=== PATIENT | female | born 1985 | race Caucasian/White ===

== ENCOUNTER 2024-08-07 12:00 | Outpatient (REF) | payer MEDICAID, SELFPAY ==
[2024-08-07 13:43] LABS: MANUAL DIFF FLAG NO
[2024-08-07 13:44] LABS: Basophils Absolute Auto 0.1 X10*3/uL (0.0-0.2); Eosinophils Percent Auto 0.2 % (0-4); Hematocrit 34.5 % (37.0-47.0); Hemoglobin 11.2 g/dl (12.0-16.0); Imm Gran Abs Auto 0.03 X10*3/uL (0.00-0.03); Imm Gran Pct Auto 0.3 % (0.0-0.4); Lymphocytes Absolute Auto 2.1 X10*3/uL (1.2-4.9); Lymphocytes Percent Auto 23.4 % (20-40); Mean Corpuscular HGB Conc 32.5 g/dl (31.0-35.0); Mean Corpuscular Hemoglobin 27.4 pg (27.0-33.0); Mean Corpuscular Volume 84.4 fL (80.0-98.0); Mean Platelet Volume 12.8 fL (9.4-12.3); Monocytes Absolute Auto 0.5 X10*3/uL (0.1-1.2); Monocytes Percent Auto 5.6 % (2-11); Neutrophils Absolute Auto 6.3 x10*3/uL (2.0-8.3); Neutrophils Percent Auto 69.5 % (45-73); Platelet Count 327 X10*3/uL (160-400); Red Blood Count 4.09 X10*6/uL (4.20-5.50); Red Cell Distribution Width 15.1 % (11.0-16.0); White Blood Count 9.1 X10*3/uL (4.8-10.8)
--- OUTSIDE RECORDS SUMMARY | 2024-08-07 13:53 | XMS_ITS | Encounter Summary ---
Author Organization [employer] Address [address] [place] [address] 7 [place] [address] Care Team Providers Care Global Ceo Name Role Phone Jessika Ramsey MD Primary Care Provider [phone] Reason for Referral * Consultation (Routine) - Authorized Specialty Diagnoses / Procedures Referred By Contac t Referred To Contact Pharmacy Diagnoses Primary hypertension Jessika Ramsey MD [address] [place] [address] Phone: tel: fax: Referral ID Status Reason Start Date Expiration Date Visits Requested Visits Authorized [id number] Authorized Consult and Treat 07/14/2024 07/14/2025 6 6 * Imaging (Routine) - Closed Specialty Diagnoses / Procedures Referred By Contac t Referred To Contact Radiology Diagnoses Screening mammogram for breast cancer Procedures BI Mammogram Screening Tomosynthesis Bilateral Jessika Ramsey MD [address] [place] [address] Phone: tel: fax: [address] Phone: tel: fax: Referral ID Status Reason Start Date Expiration Date Visits Re quested Visits Authorized [id number] Closed 07/14/2024 07/14/2025 1 1 * Consultation (Routine) - Closed Specialty Diagnoses / Procedures Referred By Contac t Referred To Contact Behavioral Health Diagnoses Depressive disorder Jessika Ramsey MD [address] [place] [address] Phone: tel: fax: Referral ID Status Reason Start Date Expiration Date V isits Requested Visits Authorized [id number] Closed Specialty Services Required 07/14/2024 07/14/2025 1 1 * Consultation (Routine) - Closed Specialty Diagnoses / Procedures Referred By Linda rabago Referred To Contact Obstetrics and Gynecology Diagnoses Abnormal cervical Papanicolaou smear, unspecified abnormal pap finding Abnormal uterine bleeding Tubal ligation evaluation eJssika Ramsey MD [address] [place] [address] Phone: tel: fax: [address] Phone: tel: fax: Referral ID Status Reason Start Date Expiration Date V isits Requested Visits Authorized [id number] Closed Specialty Services Required 07/17/2024 07/17/2025 12 12 Reason for Visit * Reason Comments Gynecologic Exam Pt is interested in getting her tubes tied; pt also stated that she feels very tight/stiffness around her shoulders, shoulder blade areas as well as her hands// also pt noticed that once she stopped smoking she feels as if she has a lump; marble; or like phlegm stuck there . Encounter Details Date Type Department Care Team (Latest Contact Info) Description 07/14/2024 11:00 AM EST Procedure Visit [facility] MEDICINE [address] [place] [id number] Jessika Ramsey MD [address] [place] [phone] Abnormal cervical Papanicolaou smear, unspecified abnormal pap finding (Primary Dx); Abnormal uterine bleeding; Tubal ligation evaluation; Chronic midline low back pain without sciatica; Moderate persistent asthma without complication; Primary hypertension; Depressive disorder; Vitamin D deficiency; Tobacco dependence syndrome; Screening mammogram for breast cancer; Routine screening for STI (sexually transmitted infection); Encounter for immunization; Other specified health status; Cervical cancer screening Social History Tobacco Use Types Packs/Day Years Used Date Smoking Tobacco: Former Cigarettes Passive Smoke Exposure: Past Tobacco Cessation:Counseling Given: Not Answered Comments:1 mo since last quit Depression Answer Date Recorded Patient Health Questionnaire-9 Score 6 07/14/2024 Patient Health Questionnaire-9 Score 6 07/14/2024 Last PHQ-9: Questionnaire Data Not on file 0 07/14/2024 Housing Stability Answer Date Recorded What is your housing situation today? I have [employer] 07/14/[address] you li ve. Do you have problems with any of the following? None of the above 07/14/2024 Food Insecurity Answer Date Recorded Within the past 12 months, y ou worried that your food would run out before you got money to buy more: Never True 07/14/2024 Within the past 12 months,th e food you bought just didn't last and you didn't have enough money to get more: Never True Transportation Answer Date Recorded In the past 12 months, has l ack of transportation kept you from medical appts, meetings, work or from getting things needed for daily living? No 07/14/2024 Utilities Answer Date Recorded In the past 12 months, has t he electric, gas, oil or water company threatened to shut off services in your home? No 07/14/2024 Depression Answer Date Recorded Patient Health Questionnaire-2 Score 1 07/14/2024 Internet Access Answer Date Recorded Internet Access Q1 Yes 07/14/2024 Internet Access Q2 Not on file 07/14/2024 Comments Unknown Sex and Gender Information Value Date Recorded Sex Assigned at Female 04/13/2022 10:14 AM EDT Legal Sex Female 10:14 AM EDT Gender Identity Female 04/13/2022 10:14 AM EDT Sexual Orientation Straight 04/13/2022 10 :14 AM EDT documented as of this encounter Last Filed Vital Signs Vital Sign Reading Time Taken Comments Blood Pressure 178/90 07/14/2024 11:55 AM EST Pulse 98 07/14/2024 11:09 AM EST Temperature 36.4 ??C (97.5 ??F) 07/14/2024 11:[address] Respiratory Rate 20 07/14/2024 11:09 AM EST Oxygen Saturation 98% 07/14/2024 11:09 AM EST Inhaled Oxygen Concentration - - Weight 73.2 kg (161 lb 6.4 oz) 07/14/2024 11:09 AM EST Height 154.9 cm (5' 1 ) 07/14/2024 11:09 AM EST Body Mass Index 30.5 07/14/2024 11:09 AM EST documented in this encounter Progress Notes * Jessika Ramsey MD - 07/14/2024 11:00 AM EST Timothy Castro is a 39 y.o. female with past medical history of asthma, hypertension, opioid dependence due to chronic back pain, depression, and tobacco dependence who presents to the office today forchronic medical conditions and comprehensive annual evaluation. Follows with FLOOR DIRECTOR for chronic back pain. Prescribed morphine sulfate ER 30mg Po q12h PRN. Pt reports she had this sensation of a marble in her throat and suspects its mucus from smoking. She reports she stopped smoking and has been coughing and clearing mucus out. She reports she wake sup in the morning and feels stiff all over her body. Pt also report she has not been exercising as much so she thinks it might be due to that. Agrees to Flu, Pneumonia, Hep A and Hep B vaccines today. Social History Tobacco: Quit. Drugs: none Alcohol: No Sexuality: Partner(s) current: 1 Contraception: implant, interested in tubal ligation. Suicide/Depression: Current depressive symptoms include: Mood disturbance, characterized by anxiety. Review of Systems Constitutional: Negative for fatigue, fever and unexpected weight change. Respiratory: Negative for cough. Cardiovascular: Negative for chest pain. Gastrointestinal: Negative for abdominal pain. Genitourinary: Negative for difficulty urinating. Current Outpatient Medications: albuterol (Proventil HFA) 108 (90 Base) MCG/ACT inhaler, Inhale 2 puffs every 4 (four) hours if needed for wheezing., Disp: 6.7 g, Rfl: 1 amLODIPine (Norvasc) 5 MG tablet, Take 1 tablet (5 mg) by mouth Once per day., Disp: 30 tablet, Rfl: 11 cholecalciferol (D3-1000) 25 MCG (1000 UT) capsule, Take 1 capsule (25 mcg) by mouth Once per day.,Disp: 90 capsule, Rfl: 0 FLUoxetine (PROzac) 40 MG capsule, Take 1 capsule (40 mg) by mouth in the morning., Disp: 90 capsule, Rfl: 3 Fluticasone-Salmeterol (Advair Diskus) 500-50 MCG/ACT aerosol powder , Inhale 500 mg 2 times daily., Disp: 30 each, Rfl: 11 morphine CR (MS Contin) 30 MG 12 hr tablet, Take 1 tablet (30 mg) by mouth 2 times daily for 21 days. Do not crush, chew, or split., Disp: 42 tablet, Rfl: 0 naloxone (Narcan) 4 mg/0.1 mL nasal spray, Administer 1 spray (4 mg) into affected nostril(s) if needed for opioid reversal., Disp: 2 each, Rfl: 1 Allergies Allergen Reactions Hydroxyzine Kiwi Extract Other reaction(s): kiwi Latex Past Medical History: Diagnosis Date Abnormal cervical Papanicolaou smear 11/25/2021 PAP 03/31/18 NILM HPV neg next due 5 years. Abnormal cervical Papanicolaou smear 11/25/2021 PAP 03/31/18 NILM HPV neg, next due 5 years. Pap with HPV testing done 04/21/24 STI testing offered,PreP offered Preventative care and harm reduction discussed Benign hypertension 11/25/2021 Well controlled of medication. Chronic low back pain 08/25/2012 hx L4-L5 back surgery, with repeat back surgery 10/[address] Nathaniel Ledesma. MRI prior to second surgery revealed some S1 nerve root compression. She completed physical therapy. She weaned MS Contin form 60mg bid which she was on for years to 30mg BID. Continue MS Contin to 30mg bid. She has appropriate expectations about decreasing medications. Discussed possibly tapering narcotics. [facility] ([facility]) use of opiate analgesic 04/12/2024 Moderate persistent asthma 11/25/2021 Continue albuterol prn. -Restart Advair 04/30/22. Tobacco dependence syndrome 11/25/2021 Attempting to quit. Smokes 6 cigs a day. Lifestyle modification discussed. Cessation encouraged butpt is not ready to quit yet. Past Surgical History: Procedure Laterality Date ADENOIDECTOMY BACK SURGERY Family History Adopted: Yes Problem Relation Name Age of Onset Cancer Maternal Grandmother Asthma Maternal Grandfather Stroke Maternal Grandfather Female with OB hx: LMP: 07/14/24 Menses frequency: monthly. Menses concerns: has spotting precipitating her menstrual cycle, but this month did not. Desires within the next year:no Brith control: interested in tubal ligation. Has implant. Breast concerns: none. Negative for: Masses, Nipple discharge, and Tenderness Menopausal symptoms negative for: hot flashes, night sweats, urinary incontinence and vaginal dryness. Previous paps: PAP 03/31/18 NILM HPV neg. Mammogram: previously not age applicable, ordered 07/14/24 Objective Visit Vitals BP (!) 178/90 Pulse 98 Temp 97.5 ??F (36.4 ??C) (Temporal) Resp 20 Ht 5' 1 (1.549 m) Wt 161 lb 6.4 oz (73.2 kg) SpO2 98% BMI 30.50 kg/m?? Smoking Status Former BSA 1.77 m?? Physical Exam Constitutional: Appearance: Normal appearance. HENT: Head: Normocephalic. Right Ear: Tympanic membrane normal. Left Ear: Tympanic membrane normal. Mouth/Throat: Pharynx: Oropharynx is clear. Eyes: Pupils: Pupils are equal, round, and reactive to light. Cardiovascular: Rate and Rhythm: Normal rate and regular rhythm. Heart sounds: Normal heart sounds. Pulmonary: Effort: Pulmonary effort is normal. Breath sounds: Normal breath sounds. Chest: Breasts: Right: Normal. Left: Normal. Abdominal: General: Abdomen is flat. Palpations: There is no mass. Tenderness: There is no abdominal tenderness. Genitourinary: General: Normal vulva. Vagina: Normal. Cervix: Normal. Uterus: Normal. Comments: Moderate amount of blood at the cervix, consistent with menstrual cycle. Musculoskeletal: General: Normal range of motion. Cervical back: Normal range of motion and neck supple. Lymphadenopathy: Cervical: No cervical adenopathy. Upper Body: Right upper body: No supraclavicular, axillary or pectoral adenopathy. Left upper body: No supraclavicular, axillary or pectoral adenopathy. Skin: General: Skin is warm and dry. Neurological: General: No focal deficit present. Mental Status: She is alert. Psychiatric: Behavior: Behavior normal. 39 y.o. female annual evaluation. Problem List Items Addressed This Visit Abnormal cervical Papanicolaou smear - Primary PAP 03/31/18 NILM HPV neg, next due 5 years. Pap with HPV testing done 07/14/24 STI testing offered, PreP offered Relevant Orders Referral to Obstetrics / Gynecology Abnormal uterine bleeding Reports has spotting precipitating her menstrual cycle, but this month did not. -referred to FILTERATION OPERATOR 07/14/24 Relevant Orders Referral to Obstetrics / Gynecology CBC auto differential Iron And Total Iron Binding Capacity Folate, Serum Ferritin Vitamin B12 TSH with Reflex to Free T4 Tubal ligation evaluation Interested in tubal ligation. No desire for . -referred to FILTERATION OPERATOR 07/14/24 Relevant Orders Referral to Obstetrics / Gynecology Chronic low back pain hx L4-L5 back surgery, with repeat back surgery 10/[address] Nathaniel Ledesma. MRI prior to second surgery revealed some S1 nerve root compression. She completed physical therapy. She weaned MS Contin form 60mg bid which she was on for years to 30mg BID. Continue MS Contin to 30mg bid. She has appropriate expectations about decreasing medications. Discussed possibly tapering narcotics. She does not feel ready at the moment as they are reducing her pain and improving function. Patient has Narcan at home and keeps narcotic medication out of reach of children. The patient had the following order(s) completed today: Urine Drug Screen. Obtained on 04/30/2022, Interpretation: see below note, Result details: Utox for MOP, THC. negative for all other tested substances. -refilled morphine CR (MS Contin) 30 MG 12 hr 07/14/24 -refilled naloxone (Narcan) 4 mg/0.1 mL nasal spray 07/14/24 Relevant Medications morphine CR (MS Contin) 30 MG 12 hr tablet naloxone (Narcan) 4 mg/0.1 mL nasal spray Moderate persistent asthma Continue albuterol prn. Continue Advair. Relevant Medications Fluticasone-Salmeterol (Advair Diskus) 500-50 MCG/ACT aerosol powder albuterol (Proventil HFA) 108 (90 Base) MCG/ACT inhaler Primary hypertension Dx 07/14/2024 due to after gestational hypertension was continued on medication, BP got controlled was off of medication and recently had elevated readings. 2 elevated readings increased after initial, today. Subsequent BP today 178/90 -Start amLODIPine (Norvasc) 5 MG 07/14/24 -referred to Collaborative Drug Therapy Managment Program with our DeenaDDIEGO 07/14/24 Relevant Medications amLODIPine (Norvasc) 5 MG tablet Other Relevant Orders Hepatic Function Panel Lipid Panel, Standard Basic Metabolic Panel Referral to Pharmacy CDTM Depressive disorder Continue fluoxetine. No DINO. Advise contact her therapist to reestablish due to increased stressors. 11/2021 -referred to behavior health 07/14/24 Relevant Orders Referral to Behavioral Health Vitamin D deficiency -ordered Vit D labs 07/14/24 Relevant Medications cholecalciferol (D3-1000) 25 MCG (1000 UT) capsule Other Relevant Orders Vitamin D, 25-Hydroxy, Total, Immunoassay Tobacco dependence syndrome Quit Smoking Previously -Cigg/day: 0.5 ppd -Age started: 15 y.o. -Total years smoking: <20 -Pack year history: <20 Encouraged smoking cessation resources such as pharmacomtherapy, [facility] smoking cessation group, and [facility] pharmacy smoking cessation clinic Discussed USPSTF recommends annual lung cancer screening with low dose CT in people who meet the following criteria: -ages 50 to 80 years. -have a 20 pack-year smoking history. -currently smoke cigarettes or quit within the past 15 years. -LDCT: not applicable. Screening mammogram for breast cancer Ordered mammogram 07/14/24 Relevant Orders BI Mammogram Screening Tomosynthesis Bilateral Other specified health status -next comprehensive annual evaluation due after 07/14/25 -eye care facilitated by [facility] -dental home encouraged -deven care proxy given and filed 07/14/24 Other Visit Diagnoses Routine screening for STI (sexually transmitted infection) Relevant Orders Chlamydia/N. Gonorrhoeae RNA, TMA, Urine Hepatitis C Antibody with Reflex to HCV, RNA, Quantitative, Real-Time PCR HIV-1/2 Antigen and Antibodies, Fourth Generation, with Reflexes Syphilis Screen STI testing add on (NG, CT, Trich) Encounter for immunization Relevant Orders FLU VACCINE TRIVALENT (Fluarix) 6 mo + PCV-20 VACCINE 6 wks + HEPATITIS A VACCINE ADULT 19 yrs + HEPATITIS B VACCINE ADULT 20 yrs + Cervical cancer screening Relevant Orders Pap Smear Pap with HPV testing done STI testing offered, PreP offered Preventative care and harm reduction discussed Annual Evaluation -Normal growth and development. -Anticipatory guidance discussed. -Preventative care / harm reduction discussed. Follow up in about 3 months (around 10/11/2024) for BP check. I, Royal Cotton, am serving as a scribe to document services personally performed by Dr. Wilhelm, based on the patient's response to questions by provider and providers statements to me. documented in this encounter Miscellaneous Notes * Assessment & Plan Note - Royal Cotton - 07/14/2024 12:01 PM ESTAssociated Problem(s): Primary hypertension Dx 07/14/2024 due to after gestational hypertension was continued on medication, BP got controlled was off of medication and recently had elevated readings. 2 elevated readings increased after initial, today. Subsequent BP today 178/90 -Start amLODIPine (Norvasc) 5 MG 07/14/24 -referred to Collaborative Drug Therapy Managment Program with our PharmD, DIEGO 07/14/24 * Assessment & Plan Note - Royal Cotton - 07/14/2024 11:58 AM ESTAssociated Problem(s): Abnormal uterine bleeding Reports has spotting precipitating her menstrual cycle, but this month did not. -referred to FILTERATION OPERATOR 07/14/24 * Assessment & Plan Note - Royal Cotton - 07/14/2024 11:57 AM ESTAssociated Problem(s): Vitamin D deficiency -ordered Vit D labs 07/14/24 * Assessment & Plan Note - Royal Cotton - 07/14/2024 11:55 AM ESTAssociated Problem(s): Abnormal cervical Papanicolaou smear PAP 03/31/18 NILM HPV neg, next due 5 years. Pap with HPV testing done 07/14/24 STI testing offered, PreP offered * Assessment & Plan Note - Royal Cotton - 07/14/2024 11:55 AM ESTAssociated Problem(s): Chronic low back pain hx L4-L5 back surgery, with repeat back surgery 10/[address] Nathaniel Ledesma. MRI prior to second surgery revealed some S1 nerve root compression. She completed physical therapy. She weaned MS Contin form 60mg bid which she was on for years to 30mg BID. Continue MS Contin to 30mg bid. She has appropriate expectations about decreasing medications. Discussed possibly tapering narcotics. She does not feel ready at the moment as they are reducing her pain and improving function. Patient has Narcan at home and keeps narcotic medication out of reach of children. The patient had the following order(s) completed today: Urine Drug Screen. Obtained on 04/30/2022, Interpretation: see below note, Result details: Utox for MOP, THC. negative for all other tested substances. -refilled morphine CR (MS Contin) 30 MG 12 hr 07/14/24 -refilled naloxone (Narcan) 4 mg/0.1 mL nasal spray 07/14/24 * Assessment & Plan Note - Royal Cotton - 07/14/2024 11:53 AM ESTAssociated Problem(s): Screening mammogram for breast cancer Ordered mammogram 07/14/24 * Assessment & Plan Note - Royal Cotton - 07/14/2024 11:53 AM ESTAssociated Problem(s): Other specified health status -next comprehensive annual evaluation due after 07/14/25 -eye care facilitated by [facility] -dental home encouraged -deven care proxy given and filed 07/14/24 * Assessment & Plan Note - Royal Cotton - 07/14/2024 11:52 AM ESTAssociated Problem(s): Moderate persistent asthma Continue albuterol prn. Continue Advair. * Assessment & Plan Note - Royal Cotton - 07/14/2024 11:44 AM ESTAssociated Problem(s): Tubal ligation evaluation Interested in tubal ligation. No desire for . -referred to FILTERATION OPERATOR 07/14/24 * Assessment & Plan Note - Royal Cotton - 07/14/2024 11:43 AM ESTAssociated Problem(s): Tobacco dependence syndrome Quit Smoking Previously -Cigg/day: 0.5 ppd -Age started: 15 y.o. -Total years smoking: <20 -Pack year history: <20 Encouraged smoking cessation resources such as pharmacomtherapy, [facility] smoking cessation group, and [facility] pharmacy smoking cessation clinic Discussed USPSTF recommends annual lung cancer screening with low dose CT in people who meet the following criteria: -ages 50 to 80 years. -have a 20 pack-year smoking history. -currently smoke cigarettes or quit within the past 15 years. -LDCT: not applicable. * Assessment & Plan Note - Royal Cotton - 07/14/2024 11:41 AM ESTAssociated Problem(s): Depressive disorder Continue fluoxetine. No DINO. Advise contact her therapist to reestablish due to increased stressors. 11/2021 -referred to behavior health 07/14/24 documented in this encounter Plan of Treatment Upcoming Encounters Date Type Department Care Team (Late st Contact Info) Description 08/09/2024 2:30 PM EST Medication Management [facility] MEDICINE [address] [place] [address] Olena Bhatt, PharmD [address], [place] [id number] 08/30/2024 2:45 PM EDT Clinical Support [facility] MED & PEDS [address] [place], [place] [phone] Tyesha Fairbanks, NORMA [address] [place], [place] 11/09/2024 10:30 AM EDT Office Visit [facility] MEDICINE [address], [place] [phone] Jessika Ramsey MD [address], [place] Scheduled Orders Name Type Priority Associated Diagnoses Orde r Schedule BI Mammogram Screening Tomosynthesis Bilateral Imaging Routine Screening mammogram for breast cancer Expected: 07/14/2024, Expires: 09/11/2025 Chlamydia/N. Gonorrhoeae RNA, TMA, Urine Microbiology Routine Routine screening for STI (sexually transmitted infection) Expected: 07/14/2024 (Approximate), Expires: 07/14/2025 Hepatitis C Antibody with Reflex to HCV, RNA, Quantitative, Real-Time PCR Lab Routine Routine screening for STI (sexually transmitted infection) Expected: 07/14/2024 (Approximate), Expires: 07/14/2025 HIV-1/2 Antigen and Antibodies, Fourth Generation, with Reflexes Lab Routine Routine screening for STI (sexually transmitted infection) Expected: 07/14/2024 (Approximate), Expires: 07/14/2025 Syphilis Screen Lab Routine Routine screening for STI (sexually transmitted infection) Expected: 07/14/2024 (Approximate), Expires: 07/14/2025 Hepatic Function Panel Lab Routine Primary hypertension Expected: 07/14/2024, Expires: 07/14/2025 Lipid Panel, Standard Lab Routine Primary hypertension Expected: 07/14/2024, Expires: 07/14/2025 Basic Metabolic Panel Lab Routine Primary hypertension Expected: 07/14/2024, Expires: 07/14/2025 Vitamin D, 25-Hydroxy, Total, Immunoassay Lab Routine Vitamin D deficiency Expected: 07/14/2024 (Approximate), Expires: 07/14/2025 Iron And Total Iron Binding Capacity Lab Routine Abnormal uterine bleeding Expected: 07/14/2024, Expires: 07/14/2025 Folate, Serum Lab Routine Abnormal uterine bleeding Expected: 07/14/2024, Expires: 07/14/2025 Ferritin Lab Routine Abnormal uterine bleeding Expected: 07/14/2024, Expires: 07/14/2025 Vitamin B12 Lab Routine Abnormal uterine bleeding Expected: 07/14/2024, Expires: 07/14/2025 TSH with Reflex to Free T4 Lab Routine Abnormal uterine bleeding Expected: 07/14/2024, Expires: 07/14/2025 Scheduled Referrals Name Type Priority Associated Diagnoses Orde r Schedule Referral to Obstetrics / Gynecology Outpatient Referral Routine Abnormal cervical Papanicolaou smear, unspecified abnormal pap finding Abnormal uterine bleeding Tubal ligation evaluation Expected: 07/14/2024 (Approximate), Expires: 07/14/2025 Referral to Behavioral Health Outpatient Referral Routine Depressive disorder Expected: 07/14/2024 (Approximate), Expires: 07/14/2025 Referral to Pharmacy CDTM Outpatient Referral Routine Primary hypertension Ordered: 07/14/2024 documented as of this encounter Procedures Procedure Name Priority Date/Time Associated Diagnosis Comments CBC WITH AUTO DIFFERENTIAL Routine 08/07/2024 12:03 PM EST Abnormal uterine bleeding CHLAMYDIA/N. GONORRHOEAE AND T. VAGINALIS RNA, QUAL,TMA Routine 07/14/2024 12:07 PM EST Routine screening for STI (sexually transmitted infection) PAP SMEAR Routine 07/14/2024 12:07 PM EST Cervical cancer screening documented in this encounter Results * (ABNORMAL) CBC auto differential (08/07/2024 12:03 PM EST) White Blood Count 9.1 4.8 - 10.8 X10*3/uL [facility] Red Blood Count 4.09(L) 4.20 - 5.50 X10*6/uL [facility] Hemoglobin 11.2(L) 12.0 - 16.0 g/dl [facility] Hematocrit 34.5(L) 37.0 - 47.0 % [facility] Mean Corpuscular Volume 84.4 80.0 - 98.0 fL [facility] Mean Corpuscular Hemoglobin 27.4 27.0 - 33.0 pg [facility] Mean Corpuscular HGB Conc 32.5 31.0 - 35.0 g/dl [facility] Red Cell Distribution Width 15.1 11.0 - 16.0 % [facility] Platelet Count 327 160 - 400 X10*3/uL [facility] Mean Platelet Volume 12.8(H) 9.4 - 12.3 fL [facility] Neutrophils Percent Auto 69.5 45 - 73 % [facility] Imm Gran Pct Auto 0.3 0.0 - 0.4 % [facility] Lymphocytes Percent Auto 23.4 20 - 40 % [facility] Monocytes Percent Auto 5.6 2 - 11 % [facility] Eosinophils Percent Auto 0.2 0 - 4 % [facility] Basophils Percent Auto 1.0 0 - 2 % [facility] NRBC Pct Auto 0.0 0.0 - 0.2 /100WBC [facility] Neutrophils Absolute Auto 6.3 2.0 - 8.3 x10*3/uL [facility] Imm Gran Abs Auto 0.03 0.00 - 0.03 X10*3/uL [facility] Lymphocytes Absolute Auto 2.1 1.2 - 4.9 X10*3/uL [facility] Monocytes Absolute Auto 0.5 0.1 - 1.2 X10*3/uL [facility] Eosinophils Absolute Auto 0.0 0.0 - 0.4 X10*3/uL [facility] Basophils Absolute Auto 0.1 0.0 - 0.2 X10*3/uL [facility] NRBC Abs Auto 0.000 0.0 - 0.012 X10*3/uL [facility] Blood Venous blood specimen / Unknown 08/07/2024 12:03 PM EST 08/07/2024 1:37 PM EST us Jessika Ramsey MD LAB BLOOD ORDERABLES Final Result [facility] [address] [place] [address] [phone] * STI testing add on (NG, CT, Trich) (07/14/2024 12:07 PM EST) Trichomonas (NAAT) Not Detected Not Detected [facility] Comment:Methodology: Transcr iption Mediated Amplification(TMA)The analytical performance characteristics of thisassay have been determined by [employer], [place]. The modificationshave not been cleared or approved by the FDA. Thisassay has been validated pursuant to the CLIAregulations and is used for clinical purposes.For additional information, please refer tohttp://[employer]/faq/Trichomonastma (This link is being providedfor information/educational purposes only).THIS TEST WAS PERFORMED AT:[employer] [address] [id number] GARCIA MD,PHD CTNG Ref Lab Not Detected Not Detected [facility] NG Ref Lab Not Detected Not Detected [facility] Comment:Methodology: Transcr iption Mediated Amplification(TMA) to detect RNA.The analytical performance characteristics of thisassay, when used to test SurePath specimens havebeen determined by [employer] The modificationshave not been cleared or approved by the FDA.This assay has been validated pursuant to the CLIAregulations and is used for clinical purposes.For additional information, please refer tohttps://[employer]/faq/OOH679(This link is being provided for information/educational purposes only).THIS TEST WAS PERFORMED AT:[employer] [address] [id number] GARCIA MD,PHD ThinPrep?? vial Cervix uteri structure / Unknown 07/14/2024 12:07 PM EST 07/17/2024 8:55 AM EST Narrative [facility] - 07/23/2024 8:03 PM EST Collection Date: [id number] by: DANY BERROASource: Cervix us Jessika Ramsey MD LAB CYTOLOGY ORDERABLES Fi nal Result [facility] [address] [place] [address] [phone] * Pap Smear (07/14/2024 12:07 PM EST) Swab Cervical swab / Unknown 07/14/2024 12:07 PM EST 07/17/2024 8:55 AM EST Narrative [facility] - 07/26/2024 10:51 AM EST ----- ------- Name: Colon,Nargis ? Age/Sex: 39/F ? : 1985 Unit#: [id number] ?? Attend Dr: Jessika Ramsey MD ?Re07/14/24 ?Status: DEP REF ? [facility] ? Disch: ? ----- ------- SPEC : [id number] ? RECD: 07/17/24-0855 ? STATUS: ??SOUT ? REQ NUM: [id number] ? GERARD: 07/14/24-1207 ? SUBM DR: Jessika Ramsey MD ? ENTERED: ??07/17/24 ?SP TYPE: Pap Smr ?OTHR DR: ? ORDERED: ??Pap Smear ? Interpretation ?? Satisfactory for evaluation. ?? Negative for intraepithelial lesion or malignancy. ?? Scant cellularity. ?? Abundant blood. ? HPV High Risk: ??Negative ? HPV Genotyping 16: ??Negative ?? HPV Genotyping 18: ??Negative ?Clinical Information LMP: Unknown date Previous PAP test: 2018, Unknown findings ? Material Received ?? ThinPrep-Cervical ----- ------- Signed (signature on file) JUANA Hopson (ASCP) 07/26/24 1051 ? ----- ------- ? END OF REPORT ? us Jessika Ramsey MD LAB CYTOLOGY ORDERABLES Fi nal Result [facility] [address] [place] [address] [phone] documented in this encounter Visit Diagnoses Diagnosis Abnormal cervical Papanicolaou smear, unspecified abnormal pap finding- Primary Abnormal uterine bleeding Unspecified disorder of menstruation and other abnormal bleeding from female genital tract Tubal ligation evaluation Other specified pre-operative examination Chronic midline low back pain without sciatica Moderate persistent asthma without complication Primary hypertension Unspecified essential hypertension Depressive disorder Depressive disorder, not elsewhere classified Vitamin D deficiency Tobacco dependence syndrome Tobacco use disorder Screening mammogram for breast cancer Routine screening for STI (sexually transmitted infection) Screening examination for venereal disease Encounter for immunization Other specified health status Cervical cancer screening Screening for malignant neoplasm of the cervix documented in this encounter Additional Health Concerns Assessment Noted Time PHQ-9 Depression Total Score: 6 07/14/19 25 11:04 AM EST documented as of this encounter Care Teams Global Ceo Relationship Specialty Start Date End Date Jessika Ramsey MD [address] [place] [address] PCP - General Family Medicine 06/14/18 documented as of this encounter
--- OUTSIDE RECORDS SUMMARY | 2024-08-07 13:53 | XMS_ITS | Encounter Summary ---
Author Organization [employer] Address [address] 7[address] [place] [address] Care Team Providers Care Cop Winder Name Role Phone Jessika Ramsey MD Primary Care Provider +1- [phone] Encounter Details Date Type Department Care Team (Latest Contact Info) Description 07/14/2024 Travel Social History Tobacco Use Types Packs/Day Years Used Date Smoking Tobacco: Former Cigarettes Passive Smoke Exposure: Past Comments:1 mo since last sergio t Depression Answer Date Recorded Patient Health Questionnaire-9 Score 6 07/14/2024 Patient Health Questionnaire-9 Score 6 07/14/2024 Last PHQ-9: Questionnaire Data Not on file 0 07/14/2024 Housing Stability Answer Date Recorded What is your housing situation today? I have bogdan wells 07/14/[address] you [...] AM EDT documented as of this encounter Plan of Treatment Upcoming Encounters Date Type Department Care Team (Late st Contact Info) Description 08/09/2024 2:30 PM EST Medication Management [facility] [address] [place] [phone] Olena Bhatt, DeenaD 230 [place] [address] 08/30/2024 2:45 PM EDT Clinical Support [facility] 505 [place] [address] Tyesha Fairbanks, RN 505 [place] [address] 11/09/2024 10:30 AM EDT Office Visit [facility] [address] [place] [address] Jessika Ramsey MD [address] [place] [address] documented as of this encounter Visit Diagnoses Not on filedocumented in this encounter Additional Health Concerns Assessment Noted Time PHQ-9 Depression Total Score: 6 07/14/19 25 11:04 AM EST documented as of this encounter Care Teams Cop Winder Relationship Specialty Start Date End Date Jessika Ramsey MD [address] [place] [address] [phone] PCP - General Family Medicine 06/14/18 documented as of this encounter
--- OUTSIDE RECORDS SUMMARY | 2024-08-07 13:54 | XMS_ITS | Encounter Summary ---
Author Organization [employer] Address [address] [place] [address] 7 [place] [address] Care Team Providers Care Back Tender Name Role Phone Jessika Ramsey MD Primary Care Provider +1- [phone] Reason for Visit * Reason Comments Med Refill Encounter Details Date Type Department Care Team (Late st Contact Info) Description 03/10/2024 Refill [facility] 505 [place] [address] Gypsy Dumont, ANP 230 [place] [address] Chronic midline low back pain without sciatica Social History Tobacco Use Types Packs/Day Years Used Date Smoking Tobacco: Every Day Cigarettes Comments Unknown Sex and Gender Information Value [...] Description 08/09/2024 2:30 PM EST Medication Management [facility] 230 [place] [address] Olena Bhatt, DeenaD 230 [place] [address] 08/30/2024 2:45 PM EDT Clinical Support [facility] [address] [place] [address] Tyesha Fairbanks, RN 505 [place] [address] 11/09/2024 10:30 AM EDT Office Visit [facility] [address] [place] [address] Jessika Ramsey MD [address] [place] [address] documented as of this encounter Visit Diagnoses Diagnosis Chronic midline low back pain without sciatica documented in this encounter Care Teams Back Tender Relationship Specialty Start Date End Date Jessika Ramsey MD [address] [place] [address] PCP - General Family Medicine 06/14/18 documented as of this encounter
--- OUTSIDE RECORDS SUMMARY | 2024-08-07 13:54 | XMS_ITS | Encounter Summary ---
Author Organization [employer] [facility] Address [address] [place] [address] 7 [place] [address] Care Team Providers Care Heel Scourer Name Role Phone Jessika Ramsey MD Primary Care Provider +1- [phone] Encounter Details Date Type Department Care Team (Late Contact Info) Description 11/01/2023 Orders Only [facility] [address] [place] [address] Jessika Ramsey MD 230 [place] [address] Tobacco dependence syndrome (Primary Dx) Social History Tobacco Use Types Packs/Day Years [...] Encounters Date Type Department Care Team (Late Contact Info) Description 08/09/2024 2:30 PM EST Medication Management [facility] [address] [place] [address] Olena Bhatt, PharmD 230 [place] [address] 08/30/2024 2:45 PM EDT Clinical Support [facility]EDS 505 [place] [address] Tyesha Fairbanks, RN 505 [place] [address] 11/09/2024 10:30 AM EDT Office Visit [facility] [address] [place] [address] Jessika Ramsey MD [address] [place] [address] documented as of this encounter Visit Diagnoses Diagnosis Tobacco dependence syndrome- Primary Tobacco use disorder documented in this encounter Care Teams Heel Scourer Relationship Specialty Start Date End Date Jessika Ramsey MD [address] [place] [address] PCP - General Family Medicine 06/14/18 documented as of this encounter
--- OUTSIDE RECORDS SUMMARY | 2024-08-07 13:54 | XMS_ITS | Encounter Summary ---
Author Organization [employer] [facility] Address [address] [place] [address] [place], [place] [address] Care Team Providers Care Technical Mgr Name Role Phone Jessika Ramsey MD Primary Care Provider +1- [phone] Reason for Visit * Reason Onset Date Comments Appointment Request 06/01/2024 Encounter Details Date Type Department Care Team (Late st Contact Info) Description 06/01/2024 Telephone [facility] [address] [place] [address] Jessika Ramsey MD [address] [place] [phone] Appointment Request Social History Tobacco Use Types Packs/Day Years Used Date Smoking Tobacco: Every Day Cigarettes Comments Unknown Sex and Gender Information Value Date Recorded Sex Assigned at Female 04/13/2022 10:14 AM EDT Legal Sex Female 10:14 AM EDT Gender Identity Female 04/13/2022 10:14 AM EDT Sexual Orientation Straight 04/13/2022 10 :14 AM EDT documented as of this encounter Miscellaneous Notes * Telephone Encounter - Jax Matthew - 06/01/2024 2:18 PM EST Tc from pt requesting appointment as she missed her appointment for med count documented in this encounter Plan of Treatment Upcoming Encounters Date Type Department Care Team (Late st Contact Info) Description 08/09/2024 2:30 PM EST Medication Management [facility] [address] [place] [address] Olena Bhatt, PharmD 230 [place] [address] 08/30/2024 2:45 PM EDT Clinical Support [facility] 505 [place] [address] Tyesha Fairbanks, RN 505 [place] [address] 11/09/2024 10:30 AM EDT Office Visit [facility] 230 [place] [address] Jessika Ramsey MD 230 [place] [address] documented as of this encounter Visit Diagnoses Not on filedocumented in this encounter Care Teams Technical Mgr Relationship Specialty Start Date End Date Jessika Ramsey MD 230 [place] [address] PCP - General Family Medicine 06/14/18 documented as of this encounter
--- OUTSIDE RECORDS SUMMARY | 2024-08-07 13:54 | XMS_ITS | Encounter Summary ---
Author Organization [employer] Address [address] 7[address] [place] [address] Care Team Providers Care Forestry Workers Name Role Phone Jessika Ramsey MD Primary Care Provider +1- [phone] Encounter Details Date Type Department Care Team ([facility] st Contact Info) Description 07/20/[address] [facility] 505 [place], [place] [phone] Tyesha Fairbanks RN 505 [place] [address] Social History Tobacco Use Types Packs/Day Years [...] encounter Miscellaneous Notes * Telephone Encounter - Tyesha Fairbanks RN - 07/20/2024 10:50 AM EST TC to pt x2 regarding message below to r/s ANIMAL TAXONOMIST [place]. No answer. Lvm for pt to c/b and r/s. documented in this encounter Plan of Treatment Upcoming Encounters Date Type Department Care Team (Late st Contact Info) Description 08/09/2024 2:30 PM EST Medication Management [facility] [address] [place] [address] Olena Bhatt, PharmD 230 [place] [address] 08/30/2024 2:45 PM EDT Clinical Support [facility] 505 [place] [address] Tyesha Fairbanks, RN 505 [place] [address] 11/09/2024 10:30 AM EDT Office Visit [facility] [address] [place] [address] Jessika Ramsey MD 230 [place] [address] documented as of this encounter Visit Diagnoses Not on filedocumented in this encounter Additional Health Concerns Assessment Noted Time PHQ-9 Depression Total Score: 6 07/14/19 25 11:04 AM EST documented as of this encounter Care Teams Forestry Workers Relationship Specialty Start Date End Date Jessika Ramsey MD 230 [place] [address] PCP - General Family Medicine 06/14/18 documented as of this encounter
--- OUTSIDE RECORDS SUMMARY | 2024-08-07 13:54 | XMS_ITS | Encounter Summary ---
Author Organization [employer] Address [address] [place] [address] 7 [place] [address] Care Team Providers Care Sample Preparation Supervisor Name Role Phone Jessika Ramsey MD Primary Care Provider +1- [phone] Reason for Visit * Reason Onset Date Comments Med Refill 06/02/2024 Encounter Details Date Type Department Care Team (Late st Contact Info) Description 06/02/2024 Refill [facility] 505 [place] [address] Jessika Ramsey MD 230 [place] [address] Chronic midline low back pain without sciatica [...] Description 08/09/2024 2:30 PM EST Medication Management [facility] 230 [place] [address] Olena Bhatt, PharmD 230 [place] [address] 08/30/2024 2:45 PM EDT Clinical Support [facility] 505 [place] [address] Tyesha Fairbanks, RN 505 [place] [address] 11/09/2024 10:30 AM EDT Office Visit [facility] [address] [place] [address] Jessika Ramsey MD [address] [place] [address] documented as of this encounter Visit Diagnoses Diagnosis Chronic midline low back pain without sciatica documented in this encounter Care Teams Sample Preparation Supervisor Relationship Specialty Start Date End Date Jessika Ramsey MD [address] [place] [address] PCP - General Family Medicine 06/14/18 documented as of this encounter
--- OUTSIDE RECORDS SUMMARY | 2024-08-07 13:54 | XMS_ITS | Encounter Summary ---
Author Organization [employer] Address [address] [place] [address] 7 [place] [address] Care Team Providers Care Watch Hairspring Assembler Name Role Phone Jessika Ramsey MD Primary Care Provider +1- [phone] Reason for Visit * Reason Comments Med Refill Encounter Details Date Type Department Care Team (Late st Contact Info) Description 03/09/2024 Refill [facility] 505 [place] [address] Gypsy Dumont, ANP 230 [place] [address] Chronic midline low back pain without sciatica [...] Description 08/09/2024 2:30 PM EST Medication Management [facility] 230 [place] [address] Olena Bhatt, DeenaD 230 [place] [address] 08/30/2024 2:45 PM EDT Clinical Support [facility] 505 [place] [address] Tyesha Fairbanks, RN 505 [place] [address] 11/09/2024 10:30 AM EDT Office Visit [facility] [address] [place] [address] Jessika Ramsey MD [address] [place] [address] documented as of this encounter Visit Diagnoses Diagnosis Chronic midline low back pain without sciatica documented in this encounter Care Teams Watch Hairspring Assembler Relationship Specialty Start Date End Date Jessika Ramsey MD [address] [place] [address] PCP - General Family Medicine 06/14/18 documented as of this encounter
--- OUTSIDE RECORDS SUMMARY | 2024-08-07 13:54 | XMS_ITS | Encounter Summary ---
Author Organization [employer] Address [address] 7t [place] [address] Care Team Providers Care Educational Recruiter Name Role Phone Jessika Ramsey MD Primary Care Provider +1- [phone] Encounter Details Date Type Department Care Team (Latest Contact Info) Description 08/04/2024 Travel Social History Tobacco Use Types Packs/Day [...] Description 08/09/2024 2:30 PM EST Medication Management [facility] [address] [place] [address] Olena Bhatt, DeenaD 230 [place] [address] 08/30/2024 2:45 PM EDT Clinical Support [facility] 505 [place] [address] Tyesha Fairbanks, RN 505 [place] [address] 11/09/2024 10:30 AM EDT Office Visit [facility] [address] [place] [address] Jessika Ramsey MD [address] [place] [address] documented as of this encounter Visit Diagnoses Not on filedocumented in this encounter Additional Health Concerns Assessment Noted Time PHQ-9 Depression Total Score: 6 07/14/19 25 11:04 AM EST documented as of this encounter Care Teams Educational Recruiter Relationship Specialty Start Date End Date Jessika Ramsey MD [address] [place] [phone] PCP - General Family Medicine 06/14/18 documented as of this encounter
--- OUTSIDE RECORDS SUMMARY | 2024-08-07 13:54 | XMS_ITS | Encounter Summary ---
Author Organization [employer] Address [address] [place] [address] [facility] [place] [address] Care Team Providers Care Butcher Supervisor Name Role Phone Jessika Ramsey MD Primary Care Provider +1- [phone] Reason for Visit * Reason Onset Date Comments Med Refill 06/01/2024 Encounter Details Date Type Department Care Team (Late st Contact Info) Description 06/01/2024 Refill [facility] [address] [place] [address] Jessika Ramsey MD 230 [place] [address] Depressive disorder Social History Tobacco Use Types Packs/Day Years [...] Description 08/09/2024 2:30 PM EST Medication Management [facility] 230 [place] [address] Olena Bhatt, PharmD 230 [place] [address] 08/30/2024 2:45 PM EDT Clinical Support [facility] 505 [place] [address] Tyesha Fairbanks, NORMA 505 [place] [address] 11/09/2024 10:30 AM EDT Office Visit [facility] [address] [place] [address] Jessika Ramsey MD [address] [place] [address] documented as of this encounter Visit Diagnoses Diagnosis Depressive disorder Depressive disorder, not elsewhere classified documented in this encounter Care Teams Butcher Supervisor Relationship Specialty Start Date End Date Jessika Ramsey MD [address] [place] [address] PCP - General Family Medicine 06/14/18 documented as of this encounter
--- OUTSIDE RECORDS SUMMARY | 2024-08-07 13:54 | XMS_ITS | Encounter Summary ---
Author Organization [employer] Address [address] [place] [address] Care Team Providers Care Almond Blancher Operator Name Role Phone Jessika Ramsey MD Primary Care Provider +1- [phone] Encounter Details Date Type Department Care Team ([facility] st Contact Info) Description 07/21/2024 Telephone [facility] 505 [place], [place] [phone] Tyesha Fairbanks RN 505 [place] [address] Social History Tobacco Use Types Packs/Day Years [...] Telephone Encounter - Tyesha Fairbanks RN - 07/21/2024 10:26 AM EST TC to pt again regarding message below to r/s TRANSFORMER MAKER [place]. No answer. Lvm for pt to c/b and r/s. documented in this encounter Plan of Treatment Upcoming Encounters Date Type Department Care Team (Late st Contact Info) Description 08/09/2024 2:30 PM EST Medication Management [facility] [address] [place] [address] Olena Bhatt, PharmD 230 [place] [address] 08/30/2024 2:45 PM EDT Clinical Support [facility] 505 [place] [address] Tyesha Fairbanks, RN 505 [place] [address] 11/09/2024 10:30 AM EDT Office Visit [facility] [address] [place] [address] Jessika Ramsey MD 230 [place] [address] documented as of this encounter Visit Diagnoses Not on filedocumented in this encounter Additional Health Concerns Assessment Noted Time PHQ-9 Depression Total Score: 6 07/14/19 25 11:04 AM EST documented as of this encounter Care Teams Almond Blancher Operator Relationship Specialty Start Date End Date Jessika Ramsey MD 230 [place] [address] PCP - General Family Medicine 06/14/18 documented as of this encounter
--- OUTSIDE RECORDS SUMMARY | 2024-08-07 13:54 | XMS_ITS | Encounter Summary ---
Author Organization [employer] Address [address] [facility] 7t [place] [address] Care Team Providers Care Breading Machine Tender Name Role Phone Jessika Ramsey MD Primary Care Provider +1- [phone] Reason for Visit * Reason Onset Date Comments May Recalls 07/28/2024 Encounter Details Date Type Department Care Team ([facility] st Contact Info) Description 07/28/2024 Telephone [facility] MEDICINE [address] [place] [address] Jessika Ramsey MD [address] [place] [address] May Recalls Social History Tobacco Use Types Packs/Day Years [...] encounter Miscellaneous Notes * Telephone Encounter - Alysha Gross MA - 07/28/2024 2:36 PM EST T/C- Personnel Arbitrator and Patient made a Follow Up appointment with jessika Ramsey for October. Appointment reminder sent via mail. documented in this encounter Plan of Treatment Upcoming Encounters Date Type Department Care Team (Late st Contact Info) Description 08/09/2024 2:30 PM EST Medication Management [facility] MEDICINE [address] [place] [address] Olena Bhatt, PharmD [address] [place] [address] 08/30/2024 2:45 PM EDT Clinical Support [facility] CHC MED & PEDS [address] [place] [address] Tyesha Fairbanks, RN 505 [place] [address] 11/09/2024 10:30 AM EDT Office Visit [facility] MEDICINE [address] [place] [address] Jessika Ramsey MD [address] [place] [address] documented as of this encounter Visit Diagnoses Not on filedocumented in this encounter Additional Health Concerns Assessment Noted Time PHQ-9 Depression Total Score: 6 07/14/19 25 11:04 AM EST documented as of this encounter Care Teams Breading Machine Tender Relationship Specialty Start Date End Date Jessika Ramsey MD [address] [place] [address] PCP - General Family Medicine 06/14/18 documented as of this encounter
--- OUTSIDE RECORDS SUMMARY | 2024-08-07 13:54 | XMS_ITS | Encounter Summary ---
Author Organization [employer] Address [address] [place] [address] [address] [place] [address] Care Team Providers Care Service Station Console Operator Name Role Phone Jessika Ramsey MD Primary Care Provider +1- [phone] Reason for Visit * Reason Onset Date Comments Med Refill 03/09/2024 Encounter Details Date Type Department Care Team (Late st Contact Info) Description 03/09/2024 Refill [facility] MEDICINE [address] [place] [address] Jessika Ramsey MD [address] [place] [address] Depressive disorder Social History Tobacco Use Types [...] Description 08/09/2024 2:30 PM EST Medication Management [facility] MEDICINE [address] [place] [address] Olena Bhatt, PharmD [address] [place] [address] 08/30/2024 2:45 PM EDT Clinical Support [facility] CHC MED & PEDS [address] [place] [address] Tyesha Fairbanks, NORMA 505 [place] [address] 11/09/2024 10:30 AM EDT Office Visit [facility] MEDICINE [address] [place] [address] Jessika Ramsey MD [address] [place] [address] documented as of this encounter Visit Diagnoses Diagnosis Depressive disorder Depressive disorder, not elsewhere classified documented in this encounter Care Teams Service Station Console Operator Relationship Specialty Start Date End Date Jessika Ramsey MD [address] [place] [address] PCP - General Family Medicine 06/14/18 documented as of this encounter
--- OUTSIDE RECORDS SUMMARY | 2024-08-07 13:54 | XMS_ITS | Encounter Summary ---
Author Organization [employer] Address [address] [place] [address] 7t [place] [address] Care Team Providers Care Block Operator Name Role Phone Jessika Ramsey MD Primary Care Provider +1- [phone] Reason for Visit * Reason Onset Date Comments Med Refill 08/04/2024 Encounter Details Date Type Department Care Team (Late st Contact Info) Description 08/04/[address] [facility] MEDICINE [address] [place] [address] Jessika Ramsey MD 230 [place] [address] Chronic midline low back pain without sciatica [...] Telephone Encounter - Tyesha Fairbanks RN - 08/04/2024 11:03 AM EST TC to pt. FRONT END JAVA DEVELOPER [place] scheduled for 08/30/24 @ 2:45pm at [facility]. documented in this encounter Plan of Treatment Upcoming Encounters Date Type Department Care Team (Late st Contact Info) Description 08/09/2024 2:30 PM EST Medication Management [facility] MEDICINE [address] [place] [address] lOena Bhatt, PharmD 230 [place] [address] 08/30/2024 2:45 PM EDT Clinical Support [facility] MED & PEDS 505 [place] [address] Tyesha Fairbanks, NORMA 505 [place] [address] 11/09/2024 10:30 AM EDT Office Visit [facility] MEDICINE [address] [place] [address] Jessika Ramsey MD [address] [place] [address] documented as of this encounter Visit Diagnoses Diagnosis Chronic midline low back pain without sciatica documented in this encounter Additional Health Concerns Assessment Noted Time PHQ-9 Depression Total Score: 6 07/14/19 25 11:04 AM EST documented as of this encounter Care Teams Block Operator Relationship Specialty Start Date End Date Jessika Ramsey MD [address] [place] [address] PCP - General Family Medicine 06/14/18 documented as of this encounter
--- OUTSIDE RECORDS SUMMARY | 2024-08-07 13:54 | XMS_ITS | Encounter Summary ---
Author Organization [employer] [facility] Address [address] [place] [address] [place] [address] Care Team Providers Care Drophammer Operator Name Role Phone Jessika Ramsey MD Primary Care Provider +1- [phone] Reason for Visit * Reason Comments Med Refill Encounter Details Date Type Department Care Team (Late st Contact Info) Description 05/12/2024 Refill [facility] MEDICINE 230 [place] [address] Jessika Ramsey MD 230 [place] [address] Tobacco dependence syndrome Social History Tobacco Use Types Packs/Day Years [...] EST Medication Management [facility] MEDICINE [address] [place] [address] Olena Bhatt, PharmD 230 [place] [address] 08/30/2024 2:45 PM EDT Clinical Support [facility] CHC MED & PEDS 505 [place] [address] Tyesha Fairbanks, RN 505 [place] [address] 11/09/2024 10:30 AM EDT Office Visit [facility] MEDICINE [address] [place] [address] Jessika Ramsey MD [address] [place] [address] documented as of this encounter Visit Diagnoses Diagnosis Tobacco dependence syndrome Tobacco use disorder documented in this encounter Care Teams Drophammer Operator Relationship Specialty Start Date End Date Jessika Ramsey MD [address] [place] [address] PCP - General Family Medicine 06/14/18 documented as of this encounter
--- OUTSIDE RECORDS SUMMARY | 2024-08-07 13:54 | XMS_ITS | Encounter Summary ---
Author Organization [employer] Address [address] [facility] 7t [place] [address] Care Team Providers Care Apparel Pattern Maker Name Role Phone Jessika Ramsey MD Primary Care Provider +1- [phone] Encounter Details Date Type Department Care Team ([facility] st Contact Info) Description 07/17/2024 Telephone [facility] MEDICINE 230 [place], [place] [phone] Jessika Ramsey MD 230 [place] [address] Social History Tobacco Use Types Packs/Day Years [...] encounter Miscellaneous Notes * Telephone Encounter - Glo Peterson - 07/17/2024 3:56 PM EST Pharmacy [facility] attempted outreach call on 07/17/24 for CDTM - Hypertension appointment; however, unable to reach patient. LVM for patient to contact Glo Peterson at [phone]. documented in this encounter Plan of Treatment Upcoming Encounters Date Type Department Care Team (Late st Contact Info) Description 08/09/2024 2:30 PM EST Medication Management [facility] MEDICINE [address] [place] [address] Olena Bhatt, PharmD 230 [place] [address] 08/30/2024 2:45 PM EDT Clinical Support [facility] CHC MED & PEDS [address] [place] [address] Tyesha Fairbanks, RN 505 [place] [address] 11/09/2024 10:30 AM EDT Office Visit [facility] MEDICINE [address] [place] [address] Jessika Ramsey MD [address] [place], [place] [phone] documented as of this encounter Visit Diagnoses Not on filedocumented in this encounter Additional Health Concerns Assessment Noted Time PHQ-9 Depression Total Score: 6 07/14/19 25 11:04 AM EST documented as of this encounter Care Teams Apparel Pattern Maker Relationship Specialty Start Date End Date Jessika Ramsey MD 230 [place] [address] PCP - General Family Medicine 06/14/18 documented as of this encounter
--- OUTSIDE RECORDS SUMMARY | 2024-08-07 13:54 | XMS_ITS | Encounter Summary ---
Author Organization [employer] Address [address] [facility] [address] 7t [place] [address] Care Team Providers Care Website Project Manager Name Role Phone Jessika Ramsey MD Primary Care Provider +1- [phone] Encounter Details Date Type Department Care Team ([facility] st Contact Info) Description 07/18/2024 Telephone [facility] CHC MED & PEDS [address] [place], [place] [phone] Tyesha Fairbanks RN 505 [place] [address] Social History Tobacco Use Types Packs/Day Years [...] Telephone Encounter - Tyesha Fairbanks RN - 07/18/2024 3:52 PM EST .What SUPPORT DBA Tier would you like this patient to be? Tier 1 = HIGH RISK, Monthly SUPPORT DBA visits Tier 2 = MODerate RISK, Q3 Month visits Tier 3 = LOW RISK = Q4-6 month visits documented in this encounter Plan of Treatment Upcoming Encounters Date Type Department Care Team (Late st Contact Info) Description 08/09/2024 2:30 PM EST Medication Management [facility] MEDICINE [address] [place] [address] Olena Bhatt, PharmD 230 [place] [address] 08/30/2024 2:45 PM EDT Clinical Support [facility] CHC MED & PEDS [address] [place] [address] Tyesha Fairbanks RN [address] [place] [address] 11/09/2024 10:30 AM EDT Office Visit [facility] MEDICINE [address] [place] [address] Jessika Ramsey MD [address] [place] [address] documented as of this encounter Visit Diagnoses Not on filedocumented in this encounter Additional Health Concerns Assessment Noted Time PHQ-9 Depression Total Score: 6 07/14/19 25 11:04 AM EST documented as of this encounter Care Teams Website Project Manager Relationship Specialty Start Date End Date Jessika Ramsey MD 230 [place] [address] PCP - General Family Medicine 06/14/18 documented as of this encounter
--- OUTSIDE RECORDS SUMMARY | 2024-08-07 13:54 | XMS_ITS | Encounter Summary ---
Author Organization [employer] Address [address] [place] [address] 7 [place] [address] Care Team Providers Care Director Business Travel Name Role Phone Jessika Ramsey MD Primary Care Provider +1- [phone] Reason for Visit * Reason Comments Med Refill Encounter Details Date Type Department Care Team (Late st Contact Info) Description 08/09/2023 Refill [facility] MED [facility]S [address] [place] [address] Patricia Servin MD [address] [place] [address] Chronic midline low back pain without sciatica [...] Description 08/09/2024 2:30 PM EST Medication Management [facility] MEDICINE [address] [place] [address] Olena Bhatt PharmD [address] [place] [address] 08/30/2024 2:45 PM EDT Clinical Support [facility] MED [facility] [address] [place] [address] Tyesha Fairbanks, RN [address] [place] [address] 11/09/2024 10:30 AM EDT Office Visit [facility] MEDICINE [address] [place] [address] Jessika Ramsey MD [address] [place] [address] documented as of this encounter Visit Diagnoses Diagnosis Chronic midline low back pain without sciatica documented in this encounter Care Teams Director Business Travel Relationship Specialty Start Date End Date Jessika Ramsey MD [address] [place] [address] PCP - General Family Medicine 06/14/18 documented as of this encounter
--- OUTSIDE RECORDS SUMMARY | 2024-08-07 13:54 | XMS_ITS | Encounter Summary ---
Author Organization [employer] [facility] Address [address] [place] [address] [address] [address] Care Team Providers Care Aircraft Electrician Name Role Phone Jessika Ramsey MD Primary Care Provider +1- [phone] Reason for Visit * Reason Comments Med Refill Encounter Details Date Type Department Care Team (Late st Contact Info) Description 05/24/2024 Refill [facility] MEDICINE [address] [place] [address] Jessika Ramsey MD [address] [place] [address] Depressive disorder Social History Tobacco Use Types [...] Description 08/09/2024 2:30 PM EST Medication Management [facility] MEDICINE [address] [place] [address] Olena Bhatt, PharmD [address] [place] [address] 08/30/2024 2:45 PM EDT Clinical Support [facility] CHC MED & PEDS [address] [place] [address] Tyesha Fairbanks, RN 505 [place] [address] 11/09/2024 10:30 AM EDT Office Visit [facility] MEDICINE [address] [place] [address] Jessika Ramsey MD [address] [place] [address] documented as of this encounter Visit Diagnoses Diagnosis Depressive disorder Depressive disorder, not elsewhere classified documented in this encounter Care Teams Aircraft Electrician Relationship Specialty Start Date End Date Jessika Ramsey MD [address] [place] [address] PCP - General Family Medicine 06/14/18 documented as of this encounter
--- OUTSIDE RECORDS SUMMARY | 2024-08-07 13:54 | XMS_ITS | Encounter Summary ---
Author Organization [employer] Address [address] [facility] 7t [place] [address] Care Team Providers Care Stereo Map Plotter Operator Name Role Phone Jessika Ramsey MD Primary Care Provider +1- [phone] Encounter Details Date Type Department Care Team ([facility] st Contact Info) Description 07/21/2024 Telephone [facility] MEDICINE 230 [place], [place] [phone] Jessika Ramsey MD [address] [place] [address] Social History Tobacco Use Types Packs/Day Years [...] * Telephone Encounter - Glo Peterson - 07/21/2024 11:39 AM EST Pharmacy [facility] attempted outreach call on 07/21/24 for CDTM - Hypertension appointment; however, unable to reach patient. LVM for patient to contact Glo Peterson at [phone]. documented in this encounter Plan of Treatment Upcoming Encounters Date Type Department Care Team (Late st Contact Info) Description 08/09/2024 2:30 PM EST Medication Management [facility] MEDICINE [address] [place] [address] Olena Bhatt, PharmD [address] [place] [address] 08/30/2024 2:45 PM EDT Clinical Support [facility] CHC MED & PEDS [address] [place] [address] Tyesha Fairbanks, RN 505 [place] [address] 11/09/2024 10:30 AM EDT Office Visit [facility] MEDICINE [address] [place] [address] Jessika Ramsey MD [address] [place], [place] [phone] documented as of this encounter Visit Diagnoses Not on filedocumented in this encounter Additional Health Concerns Assessment Noted Time PHQ-9 Depression Total Score: 6 07/14/19 25 11:04 AM EST documented as of this encounter Care Teams Stereo Map Plotter Operator Relationship Specialty Start Date End Date Jessika Ramsey MD [address] [place] [address] PCP - General Family Medicine 06/14/18 documented as of this encounter
--- OUTSIDE RECORDS SUMMARY | 2024-08-07 13:54 | XMS_ITS | Clinical Summary ---
Author Organization [employer] Address [address] [place] [address] Care Team Providers Care Building Construction Contractor Name Role Phone Jessika Ramsey MD Primary Care Provider [phone]- [phone] Allergies Active Allergy Reactions Criticality Noted Date Comments Hydroxyzine 12/04/2022 Kiwi Extract 12/04/2022 Other reaction(s): kiwi Latex 12/04/2022 Medications * This document contains information received from the source organization and may not represent a complete record from that organization. FLUoxetine (PROzac) 40 MG capsuleIndicati ons:Depressive disorder Take 1 capsule (40 mg) by mouth in the morning. 90 capsule 3 06/23/19 25 Active Fluticasone-Beto meterol (Advair Diskus) 500-50 MCG/ACT aerosol powderIndicatio ns:Moderate persistent asthma without complication Inhale 500 mg 2 times daily. 30 each 11 07/14/19 25 Active cholecalciferol (D3-1000) 25 MCG (1000 UT) capsuleIndicati ons:Vitamin D deficiency Take 1 capsule (25 mcg) by mouth Once per day. 90 capsule 07/14/19 25 Active albuterol (Proventil HFA) 108 (90 Base) MCG/ACT inhalerIndicati ons:Moderate persistent asthma without complication Inhale 2 puffs every 4 (four) hours if needed for wheezing. 6.7 g 1 07/14/19 25 Active naloxone (Narcan) 4 mg/0.1 mL nasal sprayIndication s:Chronic midline low back pain without sciatica Administer 1 spray (4 mg) into affected nostril(s) if needed for opioid reversal. 2 each 07/14/19 25 Active amLODIPine (Norvasc) 5 MG tabletIndicatio ns:Primary hypertension Take 1 tablet (5 mg) by mouth Once per day. 30 tablet 07/14/19 026 Active morphine CR (MS Contin) 30 MG 12 hr tabletIndicatio ns:Chronic midline low back pain without sciatica Take 1 tablet (30 mg) by mouth 2 times daily for 21 days. Do not crush, chew, or split. 42 tablet 08/04/19 025 Active Proventil HFA 108 (90 Base) MCG/ACT inhalerIndicati ons:Wheeze INHALE 2 PUFFS BY MOUTH EVERY 4 TO 6 HOURS NEEDED 6.7 g 1 07/02/19 025 Discontinued(R eorder (will not trigger notification to Pharmacy)) naloxone (Narcan) 4 mg/0.1 mL nasal spray Administer 0.1 mL into affected nostril(s). 06/19/19 025 Discontinued(R eorder (will not trigger notification to Pharmacy)) albuterol (Ventolin HFA) 108 (90 Base) MCG/ACT inhaler Inhale 2 puffs every 4 (four) hours if needed for wheezing. INHALE 2 PUFFS BY MOUTH EVERY 4 TO 6 HOURS NEEDED 18 g 1 01/23/20 025 Discontinued(M ed list cleanup (will not trigger notification to Pharmacy)) chlorthalidone (Hygroton) 25 MG tablet Take 25 mg by mouth in the morning. 02/27/20 025 Discontinued(M ed list cleanup (will not trigger notification to Pharmacy)) nicotine (Nicoderm, Step 1) 21 MG/24HR patchIndication s:Nicotine Dependence Place 1 patch on the skin 1 (one) time each day at the same time. 30 patch 3 11/01/19 025 Discontinued(M ed list cleanup (will not trigger notification to Pharmacy)) Fluticasone-Beto meterol (Advair Diskus) 500-50 MCG/ACT aerosol powderIndicatio ns:Moderate persistent asthma without complication INHALE 1 PUFF BY MOUTH TWICE DAILY RINSE MOUTH AFTER USING. 30 each 03/16/20 025 Discontinued(R eorder (will not trigger notification to Pharmacy)) D3-1000 25 MCG (1000 UT) capsuleIndicati ons:Vitamin D deficiency TAKE 1 CAPSULE BY MOUTH ONCE DAILY 90 capsule 04/20/20 24 025 Discontinued(R eorder (will not trigger notification to Pharmacy)) morphine CR (MS Contin) 30 MG 12 hr tabletIndicatio ns:Chronic midline low back pain without sciatica Take 1 tablet (30 mg) by mouth 2 times daily for 21 days. Do not crush, chew, or split. 42 tablet 06/23/19 25 025 Discontinued(R eorder (will not trigger notification to Pharmacy)) morphine CR (MS Contin) 30 MG 12 hr tabletIndicatio ns:Chronic midline low back pain without sciatica Take 1 tablet (30 mg) by mouth 2 times daily for 21 days. Do not crush, chew, or split. 42 tablet 07/14/19 25 025 Discontinued(R eorder (will not trigger notification to Pharmacy)) Active Problems Problem Noted Date Diagnosed Date Abnormal uterine bleeding 07/14/2024 Overview (07/14/2024): Reports has spotting precipitating her menstrual cycle, but this month did not. -referred to PROPERTY MANAGEMENT ACCOUNTANT 07/14/24 Assessment & Plan (07/14/2024 11:58 AM EST): Reports has spotting precipitating her menstrual cycle, but this month did not. -referred to PROPERTY MANAGEMENT ACCOUNTANT 07/14/24 Tubal ligation evaluation 07/14/2024 Overview (07/14/2024): Interested in tubal ligation. No desire for . -referred to PROPERTY MANAGEMENT ACCOUNTANT 07/14/24 Assessment & Plan (07/14/2024 11:44 AM EST): Interested in tubal ligation. No desire for . -referred to PROPERTY MANAGEMENT ACCOUNTANT 07/14/24 Wheeze 07/14/2024 Screening mammogram for breast cancer 07/14/2024 Overview (07/14/2024): Ordered mammogram 07/14/24 Assessment & Plan (07/14/2024 11:53 AM EST): Ordered mammogram 07/14/24 intermediate manager (current) use of opiate analgesic 03/16 Other specified health status 03/15/2023 Overview (07/14/2024): -next comprehensive annual evaluation due after 07/14/25 -eye care facilitated by [facility] -dental home encouraged -deven care proxy given and filed 07/14/24 Assessment & Plan (07/14/2024 11:53 AM EST): -next comprehensive annual evaluation due after 07/14/25 -eye care facilitated by [facility] -dental home encouraged -deven care proxy given and filed 07/14/24 Anxiety 12/04/2022 Asthma 12/04/2022 History of tonsillectomy 12/04/2022 Abnormal cervical Papanicolaou smear 11/25/2021 Overview (07/14/2024): PAP 10/18/18 NILM HPV neg, next due 5 years. Pap with HPV testing done 07/14/24 STI testing offered, PreP offered Assessment & Plan (07/14/2024 11:55 AM EST): PAP 10/18/18 NILM HPV neg, next due 5 years. Pap with HPV testing done 07/14/24 STI testing offered, PreP offered Primary hypertension 11/25/2021 Overview (07/14/2024): Dx 07/14/2024 due to after gestational hypertension was continued on medication, BP got controlled was off of medication and recently had elevated readings. 2 elevated readings increased after initial, today. Subsequent BP today 178/90 -Start amLODIPine (Norvasc) 5 MG 07/14/24 -referred to Collaborative Drug Therapy Managment Program with our PharmDDIEGO 07/14/24 Assessment & Plan (07/14/2024 12:01 PM EST): Dx 07/14/2024 due to after gestational hypertension was continued on medication, BP got controlled was off of medication and recently had elevated readings. 2 elevated readings increased after initial, today. Subsequent BP today 178/90 -Start amLODIPine (Norvasc) 5 MG 07/14/24 -referred to Collaborative Drug Therapy Managment Program with our PharmDDIEGO 07/14/24 Depressive disorder 11/25/2021 Overview (07/14/2024): Continue fluoxetine. No DINO. Advise contact her therapist to reestablish due to increased stressors. 11/2021 -referred to behavior health 07/14/24 Assessment & Plan (07/14/2024 11:41 AM EST): Continue fluoxetine. No DINO. Advise contact her therapist to reestablish due to increased stressors. 11/2021 -referred to behavior health 07/14/24 Moderate persistent asthma 11/25/2021 Overview (07/14/2024): Continue albuterol prn. Continue Advair. Assessment & Plan (07/14/2024 11:52 AM EST): Continue albuterol prn. Continue Advair. Tobacco dependence syndrome 11/25/2021 Overview (07/14/2024): Quit Smoking Previously -Cigg/day: 0.5 ppd -Age started: 15 y.o. -Total years smoking: <20 -Pack year history: <20 Encouraged smoking cessation resources such as pharmacomtherapy, [facility] smoking cessation group, and [facility] pharmacy smoking cessation clinic Discussed USPSTF recommends annual lung cancer screening with low dose CT in people who meet the following criteria: -ages 50 to 80 years. -have a 20 pack-year smoking history. -currently smoke cigarettes or quit within the past 15 years. -LDCT: not applicable. Assessment & Plan (07/14/2024 11:43 AM EST): Quit Smoking Previously -Cigg/day: 0.5 ppd -Age started: 15 y.o. -Total years smoking: <20 -Pack year history: <20 Encouraged smoking cessation resources such as pharmacomtherapy, [facility] smoking cessation group, and [facility] pharmacy smoking cessation clinic Discussed USPSTF recommends annual lung cancer screening with low dose CT in people who meet the following criteria: -ages 50 to 80 years. -have a 20 pack-year smoking history. -currently smoke cigarettes or quit within the past 15 years. -LDCT: not applicable. Vitamin D deficiency 11/25/2021 Overview (07/14/2024): No results found for: [id number] -ordered Vit D labs 07/14/24 Assessment & Plan (07/14/2024 11:57 AM EST): -ordered Vit D labs 07/14/24 Palpitations 11/24/2017 Chronic low back pain 08/25/2012 Overview (07/14/2024): hx L4-L5 back surgery, with repeat back [...] (Narcan) 4 mg/0.1 mL nasal spray 07/14/24 Assessment & Plan (07/14/2024 11:55 AM EST): hx L4-L5 back surgery, with repeat back [...] (Narcan) 4 mg/0.1 mL nasal spray 07/14/24 Encounters * This document contains information received from the source organization and may not represent a complete record from that organization. Date Type Department Care Team Description 08/04/2024 Travel 08/04/2024 Refill [facility] [address] [place] [phone] Jessika Ramsey MD Chronic midline low back pain without sciatica 07/28/[address] [address] Jessika Ramsey MD October Recalls 07/28/2024 Travel 07/21/[address] [address] Jessika Ramsey MD 07/21/2024 Telephone [facility] [address] [place] [address] Tyesha Fairbanks, NORMA 07/20/2024 Telephone [facility] [address] [place] [address] Tyesha Fairbanks, NORMA 07/18/2024 Telephone [facility] [address] [place] [address] Tyesah Fairbanks, RN 07/17/[address] [address] Jessika Ramsey MD 07/14/2024 11:00 AM EST Procedure Visit [address] [address] Jessika Ramsey MD Abnormal cervical Papanicolaou smear, unspecified abnormal pap finding (Primary Dx); Abnormal uterine bleeding; Tubal ligation evaluation; Chronic midline low back pain without sciatica; Moderate persistent asthma without complication; Primary hypertension; Depressive disorder; Vitamin D deficiency; Tobacco dependence syndrome; Screening mammogram for breast cancer; Routine screening for STI (sexually transmitted infection); Encounter for immunization; Other specified health status; Cervical cancer screening 07/14/2024 Travel 06/23/2024 Telephone [facility] [address] [place] [address] Tyesha Fairbanks RN 06/23/2024 Refill [facility] [address] [place] [phone] Jessika Ramsey MD Moderate persistent asthma without complication; Chronic midline low back pain without sciatica 06/23/2024 Refill [facility] [address] [place] [phone] Jessika Ramsey MD Depressive disorder 06/02/2024 Refill [facility] [address] [place] [address] Jessika Ramsey MD Chronic midline low back pain without sciatica 06/01/2024 Refill [facility] [address] [place] [address] Tyesha Fairbanks RN Chronic midline low back pain without sciatica 06/01/2024 Telephone [facility] [address] [place] [phone] Jessika Ramsey MD 06/01/2024 Telephone [facility] [address] [place] [phone] Jessika Ramsey MD Appointment Request 06/01/2024 Refill [facility] [address] [place] [address] Jessika Ramsey MD Chronic midline low back pain without sciatica 06/01/2024 Refill [facility] [address] [place] [phone] Jessika Ramsey MD Depressive disorder 05/24/2024 Refill [facility] [address] [place] [phone] Jessika Ramsey MD Depressive disorder 05/12/2024 Refill [facility] [address] [place] [address] Jessika Ramsey MD Tobacco dependence syndrome from Last 3 Months Immunizations Name Administration Dates Next Due Hep A, Adult 07/14/2024 Hep B, adult 07/14/2024 Influenza Injectable Quadriv alant Preservative Free IIV4 MDCK 03/31/2021 Influenza injectable quadriv alent IIV4 with preservative 04/14/2018,04/26/2017,03/13/2016 Influenza injectable quadriv alent preservative free 04/30/2022,06/19/2019 Influenza, seasonal, injecta ble, preservative free 07/14/2024 Pneumococcal Conjugate PCV 20 07/14/2024 Tdap 04/08/2021,04/26/2017 Family History * Patient is adopted Medical History Relation Name Comments Asthma Maternal Grandfather Stroke Maternal Grandfather Cancer Maternal Grandmother Relation Name Status Comments Maternal Grandfather Maternal Grandmother Social History Tobacco Use Types Packs/Day Years [...] the past 12 months, has t he e[employer], gas, oil or water company threatened to [...] Orientation Straight 04/13/2022 10 :14 AM EDT Last Filed Vital Signs Vital Sign Reading [...] Mass Index 30.5 07/14/2024 11:09 AM EST Plan of Treatment Upcoming Encounters Date Type Department Care Team (Late st Contact Info) Description 08/09/2024 2:30 PM EST Medication Management [facility] [address] [place] [address] Olena Bhatt, PharmD [address] [place] [address] 08/30/2024 2:45 PM EDT Clinical Support [facility] [address] [place] [address] Tyesha Fairbanks, NORMA [address] [place] [address] 11/09/2024 10:30 AM EDT Office Visit [facility] [address] [place] [address] Jessika Ramsey MD [address] [place] [address] Health Maintenance Due Date Last Done Comments Lipid Panel 1984 Family Planning (PISQ) 1999 Hepatitis C Screening 2002 COVID-19 Vaccine (2 - season) 2024 06/27/2021 Mammogram 2024 Hepatitis B Vaccines (2 of 3 - 19+ 3-dose series) 08/11/2024 07/14/2024 Hepatitis A Vaccines (2 of 2 - Risk 2-dose series) 01/11/2025 07/14/2024 Alcohol/Substance Use Screening 07/14/2025 07/14/2024 Depression Screening 07/14/2025 07/14/2024, 07/14/19 SDOH Screening 07/14/2025 07/14/2024 Tobacco Screening 07/14/2025 07/14/2024 Cervical Cancer Screening 07/14/2029 HPV/Cotest 07/14/2029 03/31/2018 Pap Smear 07/14/2029 07/14/2024, 03/31/2018 DTaP/Tdap/Td Vaccines (3 - Td or Tdap) 04/08/2031 04/08/2021, 04/26/2017 Zoster Vaccines (1 of 2) 2034 RSV Patients and Patients Aged 60 years or older (1 - 1-dose 75+ series) 2059 HIV Screening Completed 11/25/2017 Influenza Vaccine Completed 07/14/2024, , 03/31/2021, Additional history exists Pneumococcal Vaccine: Pediatrics (0 to 5 Years) and At-Risk Patients (6 to 49) Years) Completed 07/14/2024 HIB Vaccines Aged Out No longer eligi ble based on patient's age to complete this topic HPV Vaccines Aged Out No longer eligi ble based on patient's age to complete this topic IPV Vaccines Aged Out No longer eligi ble based on patient's age to complete this topic Meningococcal Vaccine Aged Out No amelia clyde eligible based on patient's age to complete this topic RSV under 20 months Aged Out No longe r eligible based on patient's age to complete this topic Rotavirus Vaccines Aged Out No longer eligible based on patient's age to complete this topic Procedures Procedure Name Priority Date/Time Associated Diagnosis Comments CBC WITH AUTO DIFFERENTIAL Routine 08/07/2024 12:03 PM EST Abnormal uterine bleeding CHLAMYDIA/N. GONORRHOEAE AND T. VAGINALIS RNA, QUAL,TMA Routine 07/14/2024 12:07 PM EST Routine screening for STI (sexually transmitted infection) PAP SMEAR Routine 07/14/2024 12:07 PM EST Cervical cancer screening HPV HIGH RISK PCR Routine 03/31/2018 12: 00 AM EDT HM HIV 1/2 ANTIGEN AND ANTIBODY Routine 11/25/2017 from Last 3 Months or Most Recently Relevant to Health Maintenance Results * (ABNORMAL) CBC auto differential (08/07/2024 12:03 PM EST) White Blood Count 9.1 4.8 - 10.8 X10*3/uL [facility] Red Blood Count 4.09(L) 4.20 - 5.50 X10*6/uL [facility] Hemoglobin 11.2(L) 12.0 - 16.0 g/dl [facility] Hematocrit 34.5(L) 37.0 - 47.0 % [facility] Mean Corpuscular Volume 84.4 80.0 - 98.0 fL [facility] Mean Corpuscular Hemoglobin 27.4 27.0 - 33.0 pg [facility] Mean Corpuscular HGB Conc 32.5 31.0 - 35.0 g/dl [facility] Red Cell Distribution Width 15.1 11.0 - 16.0 % [facility] Platelet Count 327 160 - 400 X10*3/uL [facility] Mean Platelet Volume 12.8(H) 9.4 - 12.3 fL [facility] Neutrophils Percent Auto 69.5 45 - 73 % [facility] Imm Gran Pct Auto 0.3 0.0 - 0.4 % [facility] Lymphocytes Percent Auto 23.4 20 - 40 % [facility] Monocytes Percent Auto 5.6 2 - 11 % [facility] Eosinophils Percent Auto 0.2 0 - 4 % [facility] Basophils Percent Auto 1.0 0 - 2 % [facility] NRBC Pct Auto 0.0 0.0 - 0.2 /100WBC [facility] Neutrophils Absolute Auto 6.3 2.0 - 8.3 x10*3/uL [facility] Imm Gran Abs Auto 0.03 0.00 - 0.03 X10*3/uL [facility] Lymphocytes Absolute Auto 2.1 1.2 - 4.9 X10*3/uL [facility] Monocytes Absolute Auto 0.5 0.1 - 1.2 X10*3/uL [facility] Eosinophils Absolute Auto 0.0 0.0 - 0.4 X10*3/uL [facility] Basophils Absolute Auto 0.1 0.0 - 0.2 X10*3/uL [facility] NRBC Abs Auto 0.000 0.0 - 0.012 X10*3/uL [facility] Blood Venous blood specimen / Unknown 08/07/2024 12:03 PM EST 08/07/2024 1:37 PM EST Jessika Ramsey MD LAB BLOOD ORDERABLES Final Result [facility] [address] [place] [address] [phone] * STI testing add on (NG, CT, Trich) (07/14/2024 12:07 PM EST) Trichomonas (NAAT) Not Detected Not Detected [facility] Comment:Methodology: Transcr iption Mediated Amplification(TMA)The analytical performance characteristics of thisassay have been determined by [facility], [place], [place]. The modificationshave not been cleared or approved by the FDA. Thisassay has been validated pursuant to the CLIAregulations and is used for clinical purposes.For additional information, please refer tohttp://education.Santech.TeamVisibility/faq/Trichomonastma (This link is being providedfor information/educational purposes only).THIS TEST WAS PERFORMED AT:[employer] [facility] [facility]/[id number] [place] [address]TJBVHJKLORETO GARCIA MD,PHD CTNG Ref Lab Not Detected Not Detected [facility] NG Ref Lab Not Detected Not Detected [facility] Comment:Methodology: Transcr iption Mediated Amplification(TMA) to detect RNA.The analytical performance characteristics of thisassay, when used to test SurePath specimens havebeen determined by [employer]. The modificationshave not been cleared or approved by the FDA.This assay has been validated pursuant to the CLIAregulations and is used for clinical purposes.For additional information, please refer tohttps://education.[employer] Records/faq/UCV700(This link is being provided for information/educational purposes only).THIS TEST WAS PERFORMED AT:[employer]/AUM [id number] [place] [address]GGGFXNELORETO GARCIA MD,PHD ThinPrep?? vial Cervix uteri structure / Unknown 07/14/2024 12:07 PM EST 07/17/2024 8:55 AM EST [facility] - 07/23/2024 8:03 PM EST Collection Date: [id number] by: DANY Ca: Cervix Jessika Ramsey MD LAB CYTOLOGY ORDERABLES Fi nal Result [facility] [address] [place] [phone] * Pap Smear (07/14/2024 12:07 PM EST) Swab Cervical swab / Unknown 07/14/2024 12:07 PM EST 07/17/2024 8:55 AM EST [facility] - 07/26/2024 10:51 AM EST ----- ------- Name: Colon,Nargis ? Age/Sex: 39/F ? : 1985 Unit#: [id number] ?? Attend Dr: Jessika Ramsey MD ?Re07/14/24 ?Status: DEP REF ? Location: HO.HHCLNP ? Disch: ? ----- ------- SPEC : [id number] ? RECD: 07/17/24 ? STATUS: ??SOUT ? REQ NUM: [id number] ? GERARD: 07/14/24-1206 ? SUBM DR: Jessika Ramsey MD ? ENTERED: ??07/17/24 ?SP TYPE: Pap Smr ?OTHR : ? ORDERED: ??Pap Smear ? Interpretation ?? [...] MD LAB CYTOLOGY ORDERABLES Fi nal Result [facility] [address] [place], [place] [phone] * HPV High Risk PCR (03/31/2018 12:00 AM EDT) Swab Cervical swab / Unknown Historical Provider LAB MICROBIOLOGY - GENERA L ORDERABLES Final Result IM[facility] * HM HIV 1/2 Antigen and Antibody (11/25/2017) HIV Ag/Ab Nonreactive Historical Provider HEALTH MAINTENANCE Final Result from Last 3 Months or Most Recently Relevant to Health Maintenance Insurance [employer] Advance Directives Documents on File Type Date Recorded Patient Data Security Administrator Expl anation Advance Directives and Living Will 07/14/2024 Health Care Proxy 07/14/24 Care Teams Building Construction Contractor Relationship Specialty Start Date End Date [place], MD Jessika [address] [place] [address] PCP - General Family Medicine 06/14/18
--- OUTSIDE RECORDS SUMMARY | 2024-08-07 13:54 | XMS_ITS | Encounter Summary ---
Author Organization [email or web address] Address [address] [place] [address] Care Team Providers Care Outpatient Clerk Name Role Phone Jessika Ramsey MD Primary Care Provider [phone]- [phone] Encounter Details Date Type Department Care Team (Latest Contact Info) Description 07/28/2024 Travel Social History Tobacco Use Types Packs/Day [...] Description 08/09/2024 2:30 PM EST Medication Management [facility] [address] [place] [phone] Olena Bhatt, DeenaD [address] [place] [address] 08/30/2024 2:45 PM EDT Clinical Support [facility] [address] [place] [address] Tyesha Fairbanks, RN [address] [place] [address] 11/09/2024 10:30 AM EDT Office Visit [facility] [address] [place] [phone] Jessika Ramsey MD [address] [place] [phone] documented as of this encounter Visit Diagnoses Not on filedocumented in this encounter Additional Health Concerns Assessment Noted Time PHQ-9 Depression Total Score: 6 07/14/19 25 11:04 AM EST documented as of this encounter Care Teams Outpatient Clerk Relationship Specialty Start Date End Date Jessika Ramsey MD [address] [place] [phone] PCP - General Family Medicine 06/14/18 documented as of this encounter
--- OUTSIDE RECORDS SUMMARY | 2024-08-07 13:55 | XMS_ITS | Encounter Summary ---
Author Organization [employer] Address [address] [place] [address] [place], [place] [address] Care Team Providers Care Medical Physics Teacher Name Role Phone Jessika Ramsey MD Primary Care Provider +1- [phone] Reason for Visit * Reason Onset Date Comments Med Refill 04/19/2023 Encounter Details Date Type Department Care Team (Late st Contact Info) Description 04/19/2023 Refill [facility] MEDICINE 230 [place] [address] Jessika Ramsey MD 230 [place] [address] Social History Tobacco Use Types Packs/Day Years [...] EST Medication Management [facility] MEDICINE 230 [place] [address] Olena Bhatt, DeenaD 230 [place] [address] 08/30/2024 2:45 PM EDT Clinical Support [facility] MED & PEDS 505 [place] [address] Tyesha Fairbanks, RN 505 [place] [address] 11/09/2024 10:30 AM EDT Office Visit [facility] MED[facility] [address] [place] [address] Jessika Ramsey MD [address] [place] [address] documented as of this encounter Visit Diagnoses Not on filedocumented in this encounter Care Teams Medical Physics Teacher Relationship Specialty Start Date End Date Jessika Ramsey MD [address] [place] [address] PCP - General Family Medicine 06/14/18 documented as of this encounter
--- OUTSIDE RECORDS SUMMARY | 2024-08-07 13:55 | XMS_ITS | Encounter Summary ---
Author Organization [facility] Address [address] [place] [address] 7 [place] [address] Care Team Providers Care Tank Stave Assembler Name Role Phone Jessika Ramsey MD Primary Care Provider +1- [phone] Encounter Details Date Type Department Care Team (Late st Contact Info) Description 03/15/2023 Abstract [facility] MEDICINE 230 [place] [address] Jessika Ramsey MD 230 [place] [address] Tobacco dependence syndrome; Moderate persistent asthma without complication; Depressive disorder; Benign hypertension; Abnormal cervical Papanicolaou smear, unspecified abnormal pap finding; Chronic midline low back pain without sciatica; Preventative health care Social History Tobacco Use Types Packs/Day Years Used Date Smoking Tobacco: Every Day Cigarettes Tobacco Cessation:Ready to Q uit: Not Asked; Counseling Given: Not Answered Comments Unknown Sex and Gender Information Value [...] 2:30 PM EST Medication Management [facility] MEDICINE [address] [place] [address] Olena Bhatt, PharmD 230 [place] [address] 08/30/2024 2:45 PM EDT Clinical Support [facility] MED & PEDS 505 [place] [address] Tyesha Fairbanks, NORMA 505 [place] [address] 11/09/2024 10:30 AM EDT Office Visit [facility] MEDICINE [address] [place] [address] Jessika Ramsey MD 230 [place] [address] documented as of this encounter Procedures Procedure Name Priority Date/Time Associated Diagnosis Comments HIV 1/2 ANTIGEN AND ANTIBODY Routine 11/25/2017 documented in this encounter Results * HIV 1/2 Antigen and Antibody (11/25/2017) HIV Ag/Ab Nonreactive Historical Provider HEALTH MAINTENANCE Final Result documented in this encounter Visit Diagnoses Diagnosis Tobacco dependence syndrome Tobacco use disorder Moderate persistent asthma without complication Depressive disorder Depressive disorder, not elsewhere classified Benign hypertension Essential hypertension, benign Abnormal cervical Papanicolaou smear, unspecified abnormal pap finding Chronic midline low back pain without sciatica Preventative health care Routine general medical examination at a health care facility documented in this encounter Care Teams Tank Stave Assembler Relationship Specialty Start Date End Date Jessika Ramsey MD 230 [place] [address] PCP - General Family Medicine 06/14/18 documented as of this encounter
--- OUTSIDE RECORDS SUMMARY | 2024-08-07 13:55 | XMS_ITS | Encounter Summary ---
Author Organization [employer] Address [address] [place] [address] [place] [address] Care Team Providers Care Editor Magazine Name Role Phone Jessika Ramsey MD Primary Care Provider +1- [phone] Reason for Visit * Reason Onset Date Comments Med Refill 05/17/2023 Encounter Details Date Type Department Care Team (Late st Contact Info) Description 05/17/[address] [facility] MED & PEDS 505 [place] [address] Dyan Fox MD 230 [place] [address] Chronic midline low back pain without sciatica [...] 2:30 PM EST Medication Management [facility] MEDICINE 230 [place] [address] Olena Bhatt, PharmD 230 [place] [address] 08/30/2024 2:45 PM EDT Clinical Support [facility] MED & PEDS 505 [place] [address] Tyesha Fairbanks, RN 505 [place] [address] 11/09/2024 10:30 AM EDT Office Visit [facility] MED[facility]INE 230 [place] [address] Jessika Ramsey MD [address] [place] [address] documented as of this encounter Visit Diagnoses Diagnosis Chronic midline low back pain without sciatica documented in this encounter Care Teams Editor Magazine Relationship Specialty Start Date End Date Jessika Ramsey MD [address] [place] [address] PCP - General Family Medicine 06/14/18 documented as of this encounter
--- OUTSIDE RECORDS SUMMARY | 2024-08-07 13:55 | XMS_ITS | Encounter Summary ---
Author Organization [employer] Address [address] [place] [address] [facility] [place] [address] Care Team Providers Care Production Troubleshooter Name Role Phone Jessika Ramsey MD Primary Care Provider +1- [phone] Reason for Visit * Reason Comments Med Refill Encounter Details Date Type Department Care Team (Late st Contact Info) Description 05/18/2023 Refill [facility] CH[facility] MED & PEDS 505 [place], [place] [phone] Dyan Fox MD 230 [place] [address] Chronic midline low back pain without sciatica [...] 2:30 PM EST Medication Management [facility] MEDICINE 230 [place] [address] Olena Bhatt, PharmD 230 [place] [address] 08/30/2024 2:45 PM EDT Clinical Support [facility] MED & PEDS 505 [place] [address] Tyesha Fairbanks, RN 505 [place] [address] 11/09/2024 10:30 AM EDT Office Visit [facility] MEDICINE [address] [place] [address] Jessika Ramsey MD [address] [place] [address] documented as of this encounter Visit Diagnoses Diagnosis Chronic midline low back pain without sciatica documented in this encounter Care Teams Production Troubleshooter Relationship Specialty Start Date End Date Jessika Ramsey MD [address] [place] [address] PCP - General Family Medicine 06/14/18 documented as of this encounter
--- OUTSIDE RECORDS SUMMARY | 2024-08-07 13:55 | XMS_ITS | Encounter Summary ---
Author Organization [employer] Address [address] [place] [address] 7 [place] [address] Care Team Providers Care Wrapper Opener Name Role Phone Jessika Ramsey MD Primary Care Provider +1- [phone] Reason for Visit * Reason Comments Med Refill Encounter Details Date Type Department Care Team (Late st Contact Info) Description 06/15/2023 Refill [facility] CH[facility] MED & PEDS 505 [place] [address] Jessika Ramsey MD 230 [place] [address] Chronic midline low back pain without sciatica [...] Description 08/09/2024 2:30 PM EST Medication Management [facility] MEDICINE 230 [place] [address] Olena Bhatt PharmD 230 [place] [address] 08/30/2024 2:45 PM EDT Clinical Support [facility] MED & PEDS 505 [place] [address] Tyesha [place]bakns, RN 505 [place] [address] 11/09/2024 10:30 AM EDT Office Visit [facility] MEDICINE [address] [place] [address] Jessika Ramsey MD [address] [place] [address] documented as of this encounter Visit Diagnoses Diagnosis Chronic midline low back pain without sciatica documented in this encounter Care Teams Wrapper Opener Relationship Specialty Start Date End Date Jessika Ramsey MD [address] [place] [address] PCP - General Family Medicine 06/14/18 documented as of this encounter
--- OUTSIDE RECORDS SUMMARY | 2024-08-07 13:55 | XMS_ITS | Encounter Summary ---
Author Organization [facility] Address [address] [place] [address] [place] [address] Care Team Providers Care Accounts Payable Payroll Coordinator Name Role Phone Jessika Ramsey MD Primary Care Provider +1- [phone] Encounter Details Date Type Department Care Team (Late st Contact Info) Description 06/29/2022 Abstract [facility] MEDICINE 230 [place] [address] Jessika Ramsey MD 230 [place] [address] Social History Tobacco Use Types Packs/Day Years Used Date Smoking Tobacco: Never Assessed Comments Unknown Sex and Gender Information Value [...] Description 08/09/2024 2:30 PM EST Medication Management [facility] MEDICINE 230 [place] [address] Olena Bhatt, PharmD 230 [place] [address] 08/30/2024 2:45 PM EDT Clinical Support [facility] CH[facility] MED & PEDS 505 [place], [place] [phone] Tyesha [place], RN 505 [place], [place] 11/09/2024 10:30 AM EDT Office Visit [facility] MEDICINE 230 [place] [address] Jessika Ramsey MD [address] [place] [address] documented as of this encounter Procedures Procedure Name Priority Date/Time Associated Diagnosis Comments HPV HIGH RISK PCR Routine 03/31/2018 12:00 AM EDT PAP SMEAR Routine 03/31/2018 12:00 AM EDT documented in this encounter Results * HPV High Risk PCR (03/31/2018 12:00 AM EDT) Swab Cervical swab / Unknown Historical Provider LAB MICROBIOLOGY - GENERA L ORDERABLES Final Result Performing Organization Address [facility]/ZIP Co de Phone Number IMAGING * Pap Smear (03/31/2018 12:00 AM EDT) Swab Historical Provider LAB CYTOLOGY ORDERABLES F inal Result IMAGING documented in this encounter Visit Diagnoses Not on filedocumented in this encounter Care Teams Accounts Payable Payroll Coordinator Relationship Specialty Start Date End Date Jessika Ramsey MD [address] [place] [address] PCP - General Family Medicine 06/14/18 documented as of this encounter
--- OUTSIDE RECORDS SUMMARY | 2024-08-07 13:55 | XMS_ITS | Encounter Summary ---
Author Organization [employer] [facility] Address [address] [place] [address] 7 [place] [address] Care Team Providers Care Balance Engineer Name Role Phone Jessika Ramsey MD Primary Care Provider +1- [phone] Encounter Details Date Type Department Care Team (Late st Contact Info) Description 07/02/2022 Orders Only [facility] MED & PEDS 505 [place] [address] Peace Faustin LPN Social History Tobacco Use Types Packs/Day Years [...] [facility] MEDICINE 230 [place] [address] Olena Bhatt, PharmD 230 [place] [address] 08/30/2024 2:45 PM EDT Clinical Support [facility] MED & PEDS 505 [place] [address] Tyesha Fairbanks, NORMA 505 [place] [address] 11/09/2024 10:30 AM EDT Office Visit [facility] MEDICINE 230 [place] [address] Jessika Ramsey MD 230 [place], [place] [phone] documented as of this encounter Visit Diagnoses Not on filedocumented in this encounter Care Teams Balance Engineer Relationship Specialty Start Date End Date Jessika Ramsey MD 230 [place], [place] [phone] PCP - General Family Medicine 06/14/18 documented as of this encounter
--- OUTSIDE RECORDS SUMMARY | 2024-08-07 13:55 | XMS_ITS | Encounter Summary ---
Author Organization [facility] Address [address] [place] [address] 7 [place] [address] Care Team Providers Care Mold Bunch Trimmer Name Role Phone Jessika Ramsey MD Primary Care Provider +1- [phone] Reason for Visit * Reason Onset Date Comments Appointment Request 08/10/2022 Encounter Details Date Type Department Care Team (Late Contact Info) Description 08/10/2022 Telephone [facility] MEDICINE 230 [place] [address] Jessika Ramsey MD 230 [place] [address] Appointment Request Social History Tobacco Use Types [...] encounter Miscellaneous Notes * Telephone Encounter - Ember Ponce - 08/10/2022 10:50 AM EST Tc from pt requesting to r/s appt for 08/10/2022. Pt claims that an incident occur at home and couldn't pick pulling machine operator the phone call. Please contact pt at [phone] documented in this encounter Plan of Treatment Upcoming Encounters Date Type Department Care Team (Late Contact Info) Description 08/09/2024 2:30 PM EST Medication Management [facility] MEDICINE 230 [place] [address] Olena Bhatt, DeenaD 230 [place] [address] 08/30/2024 2:45 PM EDT Clinical Support [facility] MED & PEDS 505 [place] [address] Tyesha [place], RN 505 [place] [address] 11/09/2024 10:30 AM EDT Office Visit [facility] MEDICINE 230 [place] [address] Jessika Ramsey MD [address] [place] [address] documented as of this encounter Visit Diagnoses Not on filedocumented in this encounter Care Teams Mold Bunch Trimmer Relationship Specialty Start Date End Date Jessika Ramsey MD [address] [place] [address] PCP - General Family Medicine 06/14/18 documented as of this encounter
--- OUTSIDE RECORDS SUMMARY | 2024-08-07 13:55 | XMS_ITS | Encounter Summary ---
Author Organization [employer] Address [address] [place] [address] 7 [place] [address] Care Team Providers Care Dye And Chemical Coordinator Name Role Phone Jessika Ramsey MD Primary Care Provider +1- [phone] Reason for Visit * Reason Onset Date Comments Med Refill 05/18/2023 Encounter Details Date Type Department Care Team (Late st Contact Info) Description 05/18/2023 Refill [facility] MED & PEDS 505 [place] [address] Jessika Ramsey MD 230 [place] [address] Chronic midline low back pain without sciatica [...] 08/09/2024 2:30 PM EST Medication Management [facility] MEDICINE 230 [place] [address] Olena Bhatt, PharmD 230 [place] [address] 08/30/2024 2:45 PM EDT Clinical Support [facility] MED & PEDS 505 [place] [address] Tyesha [place], RN 505 [place] [address] 11/09/2024 10:30 AM EDT Office Visit [facility] MEDICINE [address] [place] [address] Jessika Ramsey MD [address] [place] [address] documented as of this encounter Visit Diagnoses Diagnosis Chronic midline low back pain without sciatica documented in this encounter Care Teams Dye And Chemical Coordinator Relationship Specialty Start Date End Date Jessika Ramsey MD [address] [place] [address] PCP - General Family Medicine 06/14/18 documented as of this encounter
--- OUTSIDE RECORDS SUMMARY | 2024-08-07 13:55 | XMS_ITS | Encounter Summary ---
Author Organization [facility] Address [address] [place] [address] 7 [place] [address] Care Team Providers Care Storage Manager Name Role Phone Jessika Ramsey MD Primary Care Provider +1- [phone] Reason for Referral * Consultation (Routine) - Closed Specialty Diagnoses / Procedures Referred By Contac t Referred To Contact Pharmacy Diagnoses Tobacco dependence syndrome Jessika Ramsey MD 230 [place] [address] Phone: tel: fax: Referral ID Status Reason Start Date Expiration Date V isits Requested Visits Authorized [id number] Closed Consult and Treat 01/13/2023 01/13/2024 1 1 Encounter Details Date Type Department Care Team ([facility] Contact Info) Description 01/13/2023 Orders Only [facility] MEDICINE 230 [place], [place] [phone] Jessika Ramsey MD 230 [place], [place] [phone] Tobacco dependence syndrome (Primary Dx) Social History [...] Upcoming Encounters Date Type Department Care Team ([facility] Contact Info) Description 08/09/2024 2:30 PM EST Medication Management [facility] MEDICINE 230 [place] [address] Olena Bhatt, PharmD 230 [place] [address] 08/30/2024 2:45 PM EDT Clinical Support [facility] MED & PEDS 505 [place] [address] Tyesha [place], RN 505 [place] [address] 11/09/2024 10:30 AM EDT Office Visit [facility] MEDICINE 230 [place] [address] Jessika Ramsey MD [address] [place] [address] Scheduled Referrals Name Type Priority Associated Diagnoses Orde r Schedule Referral to Pharmacy CDTM Outpatient Referral Routine Tobacco dependence syndrome Ordered: 01/13/2023 documented as of this encounter Visit Diagnoses Diagnosis Tobacco dependence syndrome- Primary Tobacco use disorder documented in this encounter Care Teams Storage Manager Relationship Specialty Start Date End Date Jessika Ramsey MD [address] [place] [address] PCP - General Family Medicine 06/14/18 documented as of this encounter
--- OUTSIDE RECORDS SUMMARY | 2024-08-07 13:55 | XMS_ITS | Encounter Summary ---
Author Organization [employer] Address [address] [place] [address] 7 [place] [address] Care Team Providers Care Web Marketing Assistant Name Role Phone Jessika Ramsey MD Primary Care Provider +1- [phone] Reason for Visit * Reason Onset Date Comments Med Refill 11/22/2023 Encounter Details Date Type Department Care Team (Late st Contact Info) Description 11/22/2023 Refill [facility] CHC MED & PEDS 505 [place] [address] Gypsy Dumont, ANP 230 [place] [address] Chronic midline low back pain without sciatica [...] Description 08/09/2024 2:30 PM EST Medication Management [facility] MEDICINE 230 [place] [address] Olena Bhatt, PharmD 230 [place] [address] 08/30/2024 2:45 PM EDT Clinical Support [facility] MED & PEDS 505 [place] [address] Tyesha [place], RN 505 [place] [address] 11/09/2024 10:30 AM EDT Office Visit [facility] MEDICINE [address] [place] [address] Jessika Ramsey MD [address] [place] [address] documented as of this encounter Visit Diagnoses Diagnosis Chronic midline low back pain without sciatica documented in this encounter Care Teams Web Marketing Assistant Relationship Specialty Start Date End Date Jessika Ramsey MD [address] [place] [address] PCP - General Family Medicine 06/14/18 documented as of this encounter
[2024-08-07 14:04] LABS: Alanine Aminotransferase 18 U/L (0-31); Albumin Level 4.2 g/dL (3.5-5.0); Alkaline Phosphatase 60 U/L (39-117); Anion Gap 13 (12-20); Aspartate Amino Transferase 23 U/L (5-31); Bilirubin Direct 0.1 mg/dL (0.0-0.5); Bilirubin Total 0.3 mg/dL (0.0-1.0); Blood Urea Nitrogen 6 mg/dL (9-16); Calcium 9.2 mg/dL (8.4-10.2); Carbon Dioxide 21 mmol/L (22-29); Chloride 110 mmol/L (96-108); Cholesterol 192 mg/dL (<200); Estimated Glomerular Filt Rate > 60; Glucose Random 136 mg/dL (60-115); HDL Cholesterol 76 mg/dL (>40); Iron 51 mcg/dL (30-160); LDL Cholesterol Calculated 100 mg/dL (<100); Percent Iron Saturation 14 % (15-50); Potassium 3.5 mmol/L (3.3-5.1); Sodium 140 mmol/L (135-145); Total Iron Binding Capacity 357 mcg/dL (228-428); Total Protein 7.6 g/dL (6.5-8.0); Triglycerides 81 mg/dL (<150); Unsaturated Iron Binding 306 ug/dL
[2024-08-07 14:12] LABS: Syphilis Screen Nonreactive (Nonreactive)
[2024-08-07 14:16] LABS: HIV AB/AG Nonreactive (Nonreactive); HIV Num 1 0.05 S/CO (0.00-0.99); ~HepC Num1 0.16 S/CO (0.00-0.79); ~Hepatitis C Antibody Nonreactive (Nonreactive)
[2024-08-07 14:26] LABS: Vitamin B12 858 pg/mL (200-900)
[2024-08-07 14:29] LABS: Ferritin 17 ng/mL (10-250); TSH reflex Free T4 1.66 uIU/mL (0.32-4.0); Vitamin D 25-OH Total 34.9 ng/mL (>30)
[2024-08-07 16:43] LABS: CT PCR NOT DETECTED (Not Detect.); NG PCR NOT DETECTED (Not Detect.)
== END 2024-08-07 12:01 | disposition home or self-care (01) ==
LOC: HO.HHCL 12:00
PROVIDERS: Visit Provider Family Medicine
DX: I10 Essential (primary) hypertension (principal); N93.9 Abnormal uterine and vaginal bleeding, unspecified; Z11.3 Encounter for screening for infections with a predominantly sexual mode of transmission; E55.9 Vitamin D deficiency, unspecified
CPT/HCPCS: 80048; 80061; 80076; 82306; 82607; 82728; 82746; 83540; 84443; 85025; 86780; 86803; 87389; 87491; 87591

== ENCOUNTER → 2025-02-01 10:06 | Outpatient (BNV) | payer MEDICAID, SELFPAY | PROVIDERS: PCP Family Medicine; Visit Provider Radiology Diagnostic Radiology | DX: M25.461 Effusion, right knee (principal) | CPT/HCPCS: 73562 ==

== ENCOUNTER 2025-02-01 10:34 | Outpatient (REF) | payer MEDICAID, SELFPAY ==
--- NOTE | ~2025-02-01 | XR_ITS ---
EXAMINATION: XR KNEE, RIGHT CLINICAL INFORMATION: ACUTR RIGHT KNEE PAIN AND SWELLING COMPARISON: None available. TECHNIQUE: Three views of the right knee. FINDINGS: There is a joint effusion. Joint spaces are preserved. Small marginal osteophyte is present involving patella. Intercondylar spine is peaked. There is subtle lateral patellar tilt. XR/XR knee RT 3V IMPRESSION: There is a joint effusion. Minimal osteophyte formation is noted involving patella and lateral intercondylar spine. Mild lateral patellar tilt. Electronically signed by: Placido Parsons MD 02/01/2025 11:03 AM EDT
--- OUTSIDE RECORDS SUMMARY | 2025-02-01 12:06 | XMS_ITS | Clinical Summary ---
Author Organization [employer] Address [address] [place] [address] [address] [place] [address] Care Team Providers Care Locker Room Manager Name Role Phone Jessika Ramsey MD Primary Care Provider [phone] Allergies Active Allergy Reactions Criticality Noted Date [...] if needed for opioid reversal. 2 each 1 01/31/20 25 Active amLODIPine (Norvasc) 5 MG tabletIndicatio ns:Primary hypertension Take 1 tablet (5 mg) by mouth Once per day. 30 tablet 07/14/19 026 Active morphine CR (MS Contin) 30 MG 12 hr tabletIndicatio ns:Chronic midline low back pain without sciatica Take 1 tablet (30 mg) by mouth 2 times daily for 14 days. Do not crush, chew, or split. 28 tablet 01/23/20 025 Active hydroCHLOROthia zide (HYDRODiuril) 25 MG tabletIndicatio ns:Primary hypertension Take 1 tablet (25 mg) by mouth Once per day. 30 tablet 02/02/20 026 Active morphine CR (MS Contin) 30 MG 12 hr tabletIndicatio ns:Chronic midline low back pain without sciatica Take 1 tablet (30 mg) by mouth 2 times daily for 14 days. Do not crush, chew, or split. 28 tablet 12/27/19 25 025 Discontinued(R eorder (will not trigger notification to Pharmacy)) morphine CR (MS Contin) 30 MG 12 hr tabletIndicatio ns:Chronic midline low back pain without sciatica Take 1 tablet (30 mg) by mouth 2 times daily for 14 days. Do not crush, chew, or split. 28 tablet 01/09/20 25 025 Discontinued(R eorder (will not trigger notification to Pharmacy)) Active Problems Problem Noted Date Diagnosed Date Anemia 11/09/2024 Overview (02/01/2025): Lab Results Component Value Date FERRITIN 08/07/2024 HGB 11.2 (L) 08/07/2024 -on (red) meatless diet. Encouraged other dietary forms of iron intake. -rechecking labs 02/01/25 Assessment & Plan (02/01/2025 10:35 AM EDT): Lab Results Component Value Date FERRITIN 08/07/2024 HGB 11.2 (L) 08/07/2024 -on (red) meatless diet. Encouraged other dietary forms of iron intake. -rechecking labs 02/01/25 Orders: Ferritin; Future TSH with Reflex to Free T4; Future Iron And Total Iron Binding Capacity; Future Vitamin B12 (Cobalamin) and Folate Panel, Serum; Future Hemoglobin A1c; Future Abnormal uterine bleeding 07/14/2024 Overview (07/14/2024): Reports has spotting precipitating her menstrual cycle, but this month did not. -referred to AUTOMATION AND CONTROL ENGINEER 07/14/24 Assessment & Plan (07/14/2024 11:58 AM EST): Reports has spotting precipitating her menstrual cycle, but this month did not. -referred to AUTOMATION AND CONTROL ENGINEER 07/14/24 Tubal ligation evaluation 07/14/2024 Overview (07/14/2024): Interested in tubal ligation. No desire for . -referred to AUTOMATION AND CONTROL ENGINEER 07/14/24 Assessment & Plan (07/14/2024 11:44 AM EST): Interested in tubal ligation. No desire for . -referred to AUTOMATION AND CONTROL ENGINEER 07/14/24 Wheeze 07/14/2024 Screening mammogram for breast cancer 07/14/2024 Overview (02/01/2025): Ordered mammogram 07/14/24 -has appt 02/2025. Assessment & Plan (02/01/2025 10:35 AM EDT): Ordered mammogram 07/14/24 -has appt 02/2025. 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 03/16 Other specified health status 03/15/2023 Overview (07/14/2024): -next comprehensive annual evaluation due after 07/14/25 -eye care facilitated by [facility] -dental home encouraged -deven care proxy given and filed 07/14/24 Assessment & Plan (07/14/2024 11:53 AM EST): -next comprehensive annual evaluation due after 07/14/25 -eye care facilitated by [facility] -dental home encouraged -deven care proxy given and filed 07/14/24 Anxiety 12/04/2022 Asthma 12/04/2022 History of tonsillectomy 12/04/2022 Abnormal cervical Papanicolaou smear 11/25/2021 Overview (02/01/2025): PAP 1018/18 NILM HPV neg, next due 5 years. Pap done 07/14/24 NILM HPV neg, next due 5 years. Assessment & Plan (07/14/2024 11:55 AM EST): PAP 10/18/18 NILM HPV neg, next due 5 years. Pap with HPV testing done 07/14/24 STI testing offered, PreP offered Primary hypertension 11/25/2021 Overview (02/01/2025): Dx 07/14/2024 due to after gestational hypertension was continued on medication, BP got controlled was off of medication and recently had elevated readings. 2 elevated readings increased after initial, today. Subsequent BP today 178/90 -Start amLODIPine (Norvasc) 5 MG 07/14/24 -referred to Collaborative Drug Therapy Managment Program with our DIEGO López 07/14/24 -BP elevated on 5mg amlodipine 160/80 today 02/01/25 -referred to Collaborative Drug Therapy Managment Program with our DIEGO López 02/01/25 -added hydroCHLOROthiazide (HYDRODiuril) 25 MG 02/01/25 Assessment & Plan (02/01/2025 10:35 AM EDT): Dx 07/14/2024 due to after gestational hypertension was continued on medication, BP got controlled was off of medication and recently had elevated readings. 2 elevated readings increased after initial, today. Subsequent BP today 178/90 -Start amLODIPine (Norvasc) 5 MG 07/14/24 -referred to Collaborative Drug Therapy Managment Program with our DIEGO López 07/14/24 -BP elevated on 5mg amlodipine 160/80 today 02/01/25 -referred to Collaborative Drug Therapy Managment Program with our DIEGO López 02/01/25 -added hydroCHLOROthiazide (HYDRODiuril) 25 MG 02/01/25 Orders: hydroCHLOROthiazide (HYDRODiuril) 25 MG tablet; Take 1 tablet (25 mg) by mouth Once per day. Referral to Pharmacy CD Assessment & Plan (07/14/2024 12:01 PM EST): Dx 07/14/2024 due to after gestational hypertension was continued on medication, BP got controlled was off of medication and recently had elevated readings. 2 elevated readings increased after initial, today. Subsequent BP today 178/90 -Start amLODIPine (Norvasc) 5 MG 07/14/24 -referred to Collaborative Drug Therapy Managment Program with our DeenaDDIEGO 07/14/24 Depressive disorder 11/25/2021 Overview (07/14/2024): Continue [...] Encouraged smoking cessation resources such as pharmacomtherapy, [facility] smoking cessation group, and [facility] pharmacy smoking cessation clinic Discussed [...] Encouraged smoking cessation resources such as pharmacomtherapy, [facility] smoking cessation group, and [facility] pharmacy smoking cessation clinic Discussed USPSTF recommends annual lung cancer screening with low dose CT in people who meet the following criteria: -ages 50 to 80 years. -have a 20 pack-year smoking history. -currently smoke cigarettes or quit within the past 15 years. -LDCT: not applicable. Vitamin D deficiency 11/25/2021 Overview (11/09/2024): Lab Results Component Value Date [id number] 34.9 08/07/2024 -stable, Assessment & Plan (07/14/2024 11:57 AM EST): [...] 4 mg/0.1 mL nasal spray 07/14/24 Encounters Date Type Department Care Team Description 02/01/2025 9:45 AM EDT Office Visit [facility] MEDICINE [address] [place] [phone] Jessika Ramsey MD Primary hypertension (Primary Dx); Pain and swelling of right knee; Elevated blood sugar; Anemia, unspecified type; Dietary counseling; Exercise counseling; Screening mammogram for breast cancer; Encounter for immunization 02/01/2025 Travel 01/31/2025 Telephone [facility] [address] [place] [address] Jessika Ramsey MD chartprep 01/21/2025 Refill [facility] [address] [place] [address] Jessika Ramsey MD Chronic midline low back pain without sciatica 01/08/2025 Telephone [facility] MED & PEDS [address] [place] [address] Tyesha Fairbanks RN 01/08/2025 Refill [facility] [address] [place] [address] Jessika Ramsey MD Chronic midline low back pain without sciatica 12/27/2024 Refill [facility] [address] [place] [address] Jessika Ramsey MD Chronic midline low back pain without sciatica 12/25/2024 Refill [facility] [address] [place] [address] Jessika Ramsey MD Chronic midline low back pain without sciatica 12/14/2024 10:30 AM EDT Clinical Support [facility] [address] [place] [address] Tyesha Fairbanks RN Chronic midline low back pain without sciatica 12/14/2024 Telephone [facility] MED & PEDS [address] [place] [address] Tyesha Fairbanks RN 12/14/2024 Travel 12/12/2024 Travel 12/11/2024 Refill [facility] MED[facility]INE [address] [place] [phone] Jessika Ramsey MD Chronic midline low back pain without sciatica 11/27/2024 Telephone [facility] & PEDS [address] [place] [address] Tyesha Fairbanks, RN 11/27/2024 Refill [facility] [address] [place] [phone] Jessika Ramsey MD Chronic midline low back pain without sciatica 11/16/2024 Telephone [facility] [address] [place] [address] Tyesha Fairbanks, RN ADMINISTRATIVE PROCESSOR 11/10/2024 Telephone [facility] P[facility] [address] [place] [address] Tyesha Fairbanks, RN 11/09/2024 Telephone [facility] [address] [place] [phone] Jessika Ramsey MD No Show 11/09/2024 Telephone [facility] [address] [place] [phone] Jessika Ramsey MD chartprep 11/02/2024 Travel from Last 3 Months Immunizations Immunization Administration Dates Next Due Hep A, Adult [...] Q2 Not on file 07/14/2024 Comments Unknown Intention Date Recorded No desire to become (finding) 0 02/01/2025 Sex and Gender Information Value Date Recorded Sex Assigned at Female 04/13/2022 10:14 AM EDT Legal Sex Female 10:14 AM EDT Gender Identity Female 04/13/2022 10:14 AM EDT Sexual Orientation Straight 04/13/2022 10 :14 AM EDT Last Filed Vital Signs Vital Sign Reading Time Taken Comments Blood Pressure 160/80 02/01/2025 10:16 AM EDT Pulse 110 02/01/2025 10:01 AM EDT Temperature 37.2 C (98.9 F) 02/01/2025 10:01 AM EDT Respiratory Rate 20 02/01/2025 10:01 AM EDT Oxygen Saturation 96% 02/01/2025 10:01 AM EDT Inhaled Oxygen Concentration - - Weight 78.7 kg (173 lb 9.6 oz) 02/01/2025 10:01 AM EDT Height 154.9 cm (5' 1 ) 02/01/2025 10:01 AM EDT Body Mass Index 32.8 02/01/2025 10:01 AM EDT Plan of Treatment Upcoming Encounters Date Type Department Care Team (Late st Contact Info) Description 02/14/2025 10:30 AM EDT Clinical Support [facility] [address] [place] [address] Tyesha Fairbanks, RN [address] [place] [address] 04/26/2025 10:30 AM EST Office Visit [facility] MED[facility]INE [address] [place] [address] Jessika Ramsey MD [address] [place] [address] Health Maintenance Due Date Last Done Comments HPV Vaccines (1 - 3-dose series) 1999 COVID-19 Vaccine (2 - 2023- season) 2024 06/27/2021 Mammogram 2024 Hepatitis B Vaccines (2 of 3 - 19+ 3-dose series) 08/11/2024 07/14/2024 Influenza Vaccine (#1) 2025 , 04/30/2022, 03/31/2021, Additional history exists Alcohol/Substance Use Screening 07/14/2025 07/14/2024 Depression Screening 07/14/2025 07/14/2024, 07/14/19 SDOH Screening 07/14/2025 07/14/2024 Disability Screening 11/02/2025 11/02/2024 Family Planning (PISQ) 02/01/2026 02/01/2025 Tobacco Screening 02/01/2026 02/01/2025 Cervical Cancer Screening 07/14/2029 HPV/Cotest 07/14/2029 03/31/2018 Pap Smear 07/14/2029 07/14/2024, 03/31/2018 Lipid Panel 08/07/2029 08/07/2024 DTaP/Tdap/Td Vaccines (3 - Td or Tdap) 04/08/2031 04/08/2021, 04/26/2017 Zoster Vaccines (1 of 2) 2034 RSV Patients and Patients Aged 60 years or older (1 - 1-dose 75+ series) 2059 Hepatitis A Vaccines Aged Out 07/14/2024 No long er eligible based on patient's age to complete this topic Pneumococcal Vaccine: Pediatrics (0 to 5 Years) and At-Risk Patients (6 to 49) Years Completed 07/14/2024 HIV Screening Completed 08/07/2024, 11/25/2017 Hepatitis C Screening Completed 08/07/2024 HIB Vaccines Aged Out No longer eligi ble based on patient's age to complete this topic IPV Vaccines Aged Out No longer eligi ble based on patient's age to complete this topic Meningococcal B Vaccine Aged Out No l onger eligible based on patient's age to complete [...] Procedure Name Priority Date/Time Associated Diagnosis Comments XR KNEE 3 VIEWS RIGHT Routine 02/01/2025 10:06 AM EDT Pain and swelling of right knee POCT BIGG-14 URINE DRUG SCREEN Routine 12/14/2024 10:45 AM EDT Chronic midline low back pain without sciatica HEPATITIS C AB W/REFL TO HCV RNA, QN, PCR Routine 08/07/2024 12:03 PM EST Routine screening for STI (sexually transmitted infection) HIV 1/2 ANTIGEN/ANTIBODY, FOURTH GENERATION W/RFL Routine 08/07/2024 12:03 PM EST Routine screening for STI (sexually transmitted infection) LIPID PANEL, STANDARD Routine 08/07/2024 12:03 PM EST Primary hypertension PAP SMEAR Routine 07/14/2024 12:07 PM EST Cervical cancer screening HPV HIGH RISK PCR Routine 03/31/2018 12: 00 AM EDT from Last 3 Months or Most Recently Relevant to Health Maintenance Results * XR Knee 3 Views Right (02/01/2025 10:06 AM EDT) Anatomical Region Laterality Modality Lower Extremities, Knee Right [facility] 02/01/2025 10:0 6 AM EDT Narrative 02/01/2025 11:05 AM EDT [address] [address] XRay Report Signed Patient: Nargis Castro MR#: [id number] : 1985 Acct:[id number] Age/Sex: 39 / F ADM Date: 02/01/25 Loc: HO.HHCX Attending Dr: Jessika Ramsey MD Ordering Physician: Jessika Ramsey MD Date of Service: 02/01/25 Procedure(s): XR knee RT 3V Accession Number(s): [id number] cc: Jessika Ramsey MD EXAMINATION: XR KNEE, RIGHT CLINICAL INFORMATION: ACUTR RIGHT KNEE PAIN AND SWELLING COMPARISON: None available. TECHNIQUE: Three views of the right knee. FINDINGS: There is a joint effusion. Joint spaces are preserved. Small marginal osteophyte is present involving patella. Intercondylar spine is peaked. There is subtle lateral patellar tilt. XR/XR knee RT 3V IMPRESSION: There is a joint effusion. Minimal osteophyte formation is noted involving patella and lateral intercondylar spine. Mild lateral patellar tilt. Electronically signed by: Placido Parsons MD 02/01/2025 11:03 AM EDT RP Dictated By: Placido Parsons MD Signed By: <Electronically signed by Placido Parsons MD in OV> 02/01/25 1103 DD/ 1006 TD/TT: 02/01/25 1053 Clamp Jig Assembler: Procedure Note Donotuseinterpreter, Image - 02/01/[address] [address] XRay Report Signed Patient: Sarah Castro#: [id number] : 1985Acct:[id number] Age/Sex: 39 / FADM Date: 02/01/25 Loc: HO.HHCX Attending Dr: Jessika Ramsey MD Ordering Physician: Jessika Ramsey MD Date of Service: 02/01/25 Procedure(s): XR knee RT 3V Accession Number(s): [id number] cc: Jessika Ramsey MD EXAMINATION: XR KNEE, RIGHT CLINICAL INFORMATION: ACUTR RIGHT KNEE PAIN AND SWELLING COMPARISON: None available. TECHNIQUE: Three views of the right knee. FINDINGS: There is a joint effusion. Joint spaces are preserved. Small marginal osteophyte is present involving patella. Intercondylar spine is peaked. There is subtle lateral patellar tilt. XR/XR knee RT 3V IMPRESSION: There is a joint effusion. Minimal osteophyte formation is noted involving patella and lateral intercondylar spine. Mild lateral patellar tilt. Electronically signed by: Placido Parsons MD 02/01/2025 11:03 AM EDT RP Dictated By: Placido Parsons MD Signed By: <Electronically signed by Placido Parsons MD in OV> 02/01/25 1103 DD/ 1006 TD/TT: 02/01/25 1053 Clamp Jig Assembler: Jessika Ramsey MD IMG XR PROCEDURES Final Re sult * (ABNORMAL) POCT BIGG-14 Urine Drug Screen (12/14/2024 10:45 AM EDT) THC Positive(A) Negative Cocaine Screen, Urine Negative Negative Opiate Screen, Urine Positive(A) Negative Methamphetamine Screen Urine Negative(A) Negative Amphetamine Screen, Urine Negative(A) Negative Benzodiazepines Screen, Urine Negative Negative Barbiturate Screen, Urine Negative Negative Methadone Screen, Urine Negative Negative Buprenophine Screen, Urine Negative Negative TCA, Urine Negative Negative MDMA Urine Negative Negative ng/mL Oxycodone Screen, Urine Negative Negative Phencyclidine (PCP), Urine Negative Negative Propoxyphene, Urine Negative Negative Fentanyl, Urine Negative Negative Urine Urine specimen obtained by clean catch procedure / Unknown 12/14/2024 10:45 AM EDT Narrative Tyesha Fairbanks RN - 12/14/2024 10:45 AM EDT Internal Pass Control Lot# [id number] Exp: 04-13-26 Jessika Ramsey MD POINT OF CARE TEST ENTER/E DIT ORDERABLES Edited Result - Final * Hepatitis C Antibody with Reflex to HCV, RNA, Quantitative, Real-Time PCR (08/07/2024 12:03 PM EST) Hepatitis C Antibody Nonreactive Nonreactive [facility] Comment:Antibodies to HCV no t detected; does not exclude early acuteHCV infection. Blood Venous blood specimen / Unknown 08/07/2024 12:03 PM EST 08/07/2024 1:37 PM EST Jessika Ramsey MD LAB BLOOD ORDERABLES Final Result [facility] [address] [place] [address] [phone] * HIV-1/2 Antigen and Antibodies, Fourth Generation, with Reflexes (08/07/2024 12:03 PM EST) HIV AB/AG Nonreactive Nonreactive [facility] Comment:HIV-1 p24 Ag and/or HIV-1/HIV-2 Ab not detected.A test result that is nonreactive does not exclude thepossibility of exposure to or infection with HIV-1 and/orHIV-2. Nonreactive results in this assay for individualswith prior exposure to HIV-1 and/or HIV-2 may be due toantigen and antibody levels that are below the limit ofdetection of this assay.The Custom Coup HIV Ag/Ab Combo assay result andsupplemental assay results should be interpreted inconjunction with the patient's clinical presentation,history and other laboratory results. If the results areinconsistent with clinical evidence, additional testing issuggested to confirm the result. Blood Venous blood specimen / Unknown 08/07/2024 12:03 PM EST 08/07/2024 1:37 PM EST us Jessika Ramsey MD LAB BLOOD ORDERABLES Final Result [facility] [address] [place] [address] [phone] * (ABNORMAL) Lipid Panel, Standard (08/07/2024 12:03 PM EST) Triglycerides 81 <150 mg/dL [facility] Comment:Desirable Triglyceri de: less than 150 mg/dLBorderline High Triglyceride 150-199 mg/dLHigh Triglyceride: 200-499 mg/dLVery High Triglyceride: greater than or equal to 5OO mg/dL Cholesterol 192 <200 mg/dL [facility] Comment:Desirable Cholestero l: less than 200 mg/dLBorderline High Cholesterol: 200-239 mg/dLHigh Cholesterol: greater than 239 mg/dL LDL Cholesterol Calculated 100(H) <100 mg/dL [facility] Comment:Desirable LDL: less than 100 mg/dLNear Optimal/Above Optimal LDL: 110- 129 mg/dLBorderline High LDL: 130-159 mg/dLHigh LDL: 160-189 mg/dLVery High LDL: greater than or equal to 190 mg/dL HDL Cholesterol 76 >40 mg/dL [facility] Comment:Desirable HDL: great er than 40 mg/dL Note: This HDL assay may give artificially low results in patients with liver disease. Blood Venous blood specimen / Unknown 08/07/2024 12:03 PM EST 08/07/2024 1:37 PM EST us Jessika Ramsey MD LAB BLOOD ORDERABLES Final Result [facility] [address] [place] [phone] * Pap Smear (07/14/2024 12:07 PM EST) Swab Cervical swab / Unknown 07/14/2024 12:07 PM EST 07/17/2024 8:55 AM EST Narrative [facility] - 07/26/2024 10:51 AM EST ----- ------- Name: MatthewNargis Age/Sex: 39/F : 1985 Unit#: [id number] Attend Dr: Jessika Ramsey MD Re07/14/24 Status: DEP REF Location: HO.HHCLNP Disch: ----- ------- SPEC : [id number] RECD: 07/17/24 STATUS: ARMAND FIELDS NUM: [id number] GERARD: 07/14/24-[address] [facility] [address]: Jessika Rmasey MD ENTERED: 07/17/24 SP TYPE: Pap Smr OTHR DR: ORDERED: Pap Smear Interpretation Satisfactory for evaluation. Negative for intraepithelial lesion or malignancy. Scant cellularity. Abundant blood. HPV High Risk: Negative HPV Genotyping 16: Negative HPV Genotyping 18: Negative Clinical Information LMP: Unknown date Previous PAP test: 2018, Unknown findings Material Received ThinPrep-Cervical ----- ------- Signed (signature on file) JUANA Hopson (ASCP) 07/26/24 1051 ----- ------- END OF REPORT Jessika Ramsey MD LAB CYTOLOGY ORDERABLES Fi nal Result [facility] [address] [place] [phone] * HPV High Risk PCR (03/31/2018 12:00 AM EDT) Swab Cervical swab / Unknown Historical Provider LAB MICROBIOLOGY - GENERA L ORDERABLES Final Result IMAGING from Last 3 Months or Most Recently Relevant to Health Maintenance Insurance [facility] C3 Advance Directives Documents on File Type Date Recorded 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
== END 2025-02-01 10:35 | disposition home or self-care (01) ==
LOC: HO.HHCX 10:34
PROVIDERS: PCP Family Medicine; Visit Provider Family Medicine
DX: M25.561 Pain in right knee (principal); M25.461 Effusion, right knee
CPT/HCPCS: 73562

== ENCOUNTER 2025-03-14 09:58 | Outpatient (AMB) | payer MEDICAID, SELFPAY ==
--- NOTE | 2025-03-14 10:14 | MHC.OFFVIS ---
Vital Signs 03/14/25 10:21 Height 5 ft 1 in Weight 148 lb BMI 28.0 Intake Visit Reasons: Right knee pain and giving way Intake Note: Nargis is a 39 year old female who presents with complaints of progressively worsening right knee pain and giving way. The patient states that she injured her right knee approximately 6 months ago while getting out of bed. She twisted her knee and had acute onset of pain. Since that time her symptoms have gotten progressively worse. Most of the pain is along the medial aspect of her right knee. She has failed the last 6 weeks of conservative treatment which has included Tylenol, anti-inflammatory medicines, morphine, physical therapy exercises and a home exercise program. She states that her right knee will give out several times per day. Allergies kiwi Allergy (Intermediate, Verified 03/14/25 10:22) Itching latex (LATEX) Allergy (Unknown, Unverified 08/16/24 16:05) RASH Medication List - Last Reconciled 03/14/25 by Bipin Ferro MD albuterol sulfate 90 mcg/actuation (Ventolin HFA) 2 puffs inhalation Q4H PRN cholecalciferol (vitamin D3) (Vitamin D3) 25 mcg PO DAILY fluoxetine 40 mg PO QAM morphine ER 30 mg PO BID PFSH Social History (Updated 03/14/25 @ 10:23 by Rossi Dasilva) Alcohol intake: never Patient Tobacco Use Status: Former Tobacco user Use of substances other than those prescribed or required for medical reasons: No Current occupational status: unemployed Current occupation: Stay at home Mom Physical Exam Vital Signs: BMI result Body Mass Index 28.0 Const Other: Well-nourished well-developed very friendly female awake alert and oriented x3 in no acute distress Extrem Other: Right knee examination shows a minimal effusion, minimal crepitus with range of motion, tenderness along her medial joint line, positive Chicho's test, no instability Results Reviewed Results Reviewed: Standing full weight-bearing x-rays of the patient's right knee show mild diffuse joint space narrowing, no acute bony abnormalities Assessment & Plan Assessment & Plan (1) Tear of medial meniscus of right knee: Code(s): S83.241A - Other tear of medial meniscus, current injury, right knee, initial encounter Category: Medical Plan Ms. Castro presents with progressively worsening right knee pain and mechanical symptoms most likely due to a medial meniscus tear. Thus, I will send the patient for an MRI of her right knee for further evaluation. I will see her back once the MRI is completed to discuss the findings and treatment options. Feel free to call me at any time should questions regarding her orthopedic management arise. I spent 22 minutes in reviewing the patient's records and imaging studies, seeing the patient and documenting in the medical record. Orders: Orders MR knee RT wo con 03/15/25 S83.241A - Other tear of medial meniscus, current injury, right knee, initial encounter Coding Level of Care Code New Pt Level 3 (51470) Complex EM visit Add On G2211 Diagnoses Tear of medial meniscus of right knee S83.241A
[2025-03-14 10:21] VITALS: BMI 28.0
--- OUTSIDE RECORDS SUMMARY | 2025-03-14 11:09 | XMS_ITS | Encounter Summary ---
Author Organization [employer] Address [address] [place] [address] Care Team Providers Care Computer Technical Support Specialist Name Role Phone Jessika Ramsey MD Primary Care Provider +1- [phone] Reason for Visit * Reason Onset Date Comments Med Refill 06/01/2024 Encounter Details Date Type Department Care Team (Late st Contact Info) Description 06/01/2024 Refill [facility] MED[facility]INE [address] [place] [phone] Jessika Ramsey MD [address] [place] [address] [phone] Depressive disorder Social History Tobacco Use Types [...] Care Team (Late st Contact Info) Description 04/26/2025 10:30 AM EST Office Visit [facility] [address] [place] [phone] Jessika Ramsey MD [address] [place] [address] [phone] documented as of this encounter Visit Diagnoses Diagnosis Depressive disorder Depressive disorder, not elsewhere classified documented in this encounter Care Teams Computer Technical Support Specialist Relationship Specialty Start Date End Date Jessika Ramsey MD [address] [facility] [place] [address] PCP - General Family Medicine 06/14/18 documented as of this encounter
--- OUTSIDE RECORDS SUMMARY | 2025-03-14 11:09 | XMS_ITS | Encounter Summary ---
Author Organization [employer] Address [address] [place] [address] 7 [place] [address] Care Team Providers Care Oil Truck Driver Name Role Phone Jessika Ramsey MD Primary Care Provider +1- [phone] Reason for Visit * Reason Comments Med Refill Encounter Details Date Type Department Care Team ([facility] st Contact Info) Description 12/27/2024 Refill [facility] MED[facility]INE [address] [place] [address] Jessika Ramsey MD [address] [place] [address] Chronic midline low back pain without sciatica [...] Description 04/26/2025 10:30 AM EST Office Visit [facility]INE [address] [place] [phone] Jessika Ramsey MD [address] [place] [address] documented as of this encounter Visit Diagnoses Diagnosis Chronic midline low back pain without sciatica documented in this encounter Additional Health Concerns Assessment Noted Time PHQ-9 Depression Total Score: 6 07/14/19 25 11:04 AM EST documented as of this encounter Care Teams Oil Truck Driver Relationship Specialty Start Date End Date Jessika Ramsey MD [address] [place] [phone] PCP - General Family Medicine 06/14/18 documented as of this encounter
--- OUTSIDE RECORDS SUMMARY | 2025-03-14 11:09 | XMS_ITS | Encounter Summary ---
Author Organization [employer] Address [address] [place] [address] Care Team Providers Care Spinning Room Worker Name Role Phone Jessika Ramsey MD Primary Care Provider +1- [phone] Reason for Visit * Reason Comments Med Refill Encounter Details Date Type Department Care Team (Late st Contact Info) Description 03/10/2024 Refill [facility] CHC MED & PEDS [address] [place], [place] [phone] Gypsy Dumont, ANP [address] [place] [address] Chronic midline low back pain without sciatica [...] Description 04/26/2025 10:30 AM EST Office Visit [facility]INE [address] [place] [address] Jessika Ramsey MD [address] [place] [address] documented as of this encounter Visit Diagnoses Diagnosis Chronic midline low back pain without sciatica documented in this encounter Care Teams Spinning Room Worker Relationship Specialty Start Date End Date Jessika Ramsey MD [address] [place] [address] PCP - General Family Medicine 06/14/18 documented as of this encounter
--- OUTSIDE RECORDS SUMMARY | 2025-03-14 11:09 | XMS_ITS | Encounter Summary ---
Author Organization [employer] Address [address] [place] [address] Care Team Providers Care Community Health Nurse Supervisor Name Role Phone Jessika Ramsey MD Primary Care Provider +1- [phone] Encounter Details Date Type Department Care Team (Late st Contact Info) Description 03/15/2023 Abstract [facility]INE [address] [place] [phone] Jessika Ramsey MD [address] [place] [address] [phone] Tobacco dependence syndrome; Moderate persistent asthma without [...] Description 04/26/2025 10:30 AM EST Office Visit [facility] [address] [place] [phone] Jessika Ramsey MD [address] [place] [address] [phone] documented as of this encounter Procedures Procedure Name Priority Date/Time Associated Diagnosis Comments HM HIV 1/2 ANTIGEN AND ANTIBODY Routine 11/25/2017 documented in this encounter Results * HM HIV 1/2 Antigen and Antibody (11/25/2017) HIV Ag/Ab Nonreactive us Historical Provider HEALTH MAINTENANCE Final Result documented [...] facility documented in this encounter Care Teams Community Health Nurse Supervisor Relationship Specialty Start Date End Date Jessika Ramsey MD [address] [place] [phone] PCP - General Family Medicine 06/14/18 documented as of this encounter
--- OUTSIDE RECORDS SUMMARY | 2025-03-14 11:09 | XMS_ITS | Encounter Summary ---
Author Organization [employer] Address [address] [place] [address] Care Team Providers Care School Patrol Name Role Phone Jessika Ramsey MD Primary Care Provider +1- [phone] Reason for Visit * Reason Onset Date Comments Med Refill 05/18/2023 Encounter Details Date Type Department Care Team (Late st Contact Info) Description 05/18/2023 Refill [facility] CHC MED & PEDS [address] [place] [address] Jessika Ramsey MD [address] [place] [address] Chronic midline low back pain without sciatica [...] Description 04/26/2025 10:30 AM EST Office Visit [facility] MEDICINE [address] [place] [phone] Jessika Ramsey MD [address] [place] [address] documented as of this encounter Visit Diagnoses Diagnosis Chronic midline low back pain without sciatica documented in this encounter Care Teams School Patrol Relationship Specialty Start Date End Date Jessika Ramsey MD [address] [place] [phone] PCP - General Family Medicine 06/14/18 documented as of this encounter
--- OUTSIDE RECORDS SUMMARY | 2025-03-14 11:09 | XMS_ITS | Encounter Summary ---
Author Organization [employer] Address [address] [place] [address] Care Team Providers Care Adjunct Faculty Instructor Name Role Phone Jessika Ramsey MD Primary Care Provider +1- [phone] Reason for Visit * Reason Onset Date Comments Med Refill 03/09/2024 Encounter Details Date Type Department Care Team (Late st Contact Info) Description 03/09/2024 Refill [facility] MED[facility]INE [address] [place] [address] Jessika Ramsey MD [address] [place] [address] [phone] Depressive disorder Social History Tobacco Use Types [...] Description 04/26/2025 10:30 AM EST Office Visit [facility] [address] [place] [phone] Jessika Ramsey MD [address] [place] [address] [phone] documented as of this encounter Visit Diagnoses Diagnosis Depressive disorder Depressive disorder, not elsewhere classified documented in this encounter Care Teams Adjunct Faculty Instructor Relationship Specialty Start Date End Date Jessika Ramsey MD [address] [facility] [place] [address] PCP - General Family Medicine 06/14/18 documented as of this encounter
--- OUTSIDE RECORDS SUMMARY | 2025-03-14 11:09 | XMS_ITS | Encounter Summary ---
Author Organization [employer] Address [address] [place] [address] Care Team Providers Care Vp Transportation Name Role Phone Jessika Ramsey MD Primary Care Provider +1- [phone] Encounter Details Date Type Department Care Team (Late st Contact Info) Description 11/01/2023 Orders Only [facility] MEDICINE [address] [place] [phone] Jessika Ramsey MD [address] [place] [phone] Tobacco dependence syndrome (Primary Dx) Social History [...] Description 04/26/2025 10:30 AM EST Office Visit [facility] [address] [place] [address] Jessika Ramsey MD [address] [place] [phone] documented as of this encounter Visit Diagnoses Diagnosis Tobacco dependence syndrome- Primary Tobacco use disorder documented in this encounter Care Teams Vp Transportation Relationship Specialty Start Date End Date Jessika Ramsey MD [address] [place] [phone] PCP - General Family Medicine 06/14/18 documented as of this encounter
--- OUTSIDE RECORDS SUMMARY | 2025-03-14 11:09 | XMS_ITS | Encounter Summary ---
Author Organization [employer] Address [address] [place] [address] Care Team Providers Care Organization Development Consultant Name Role Phone Jessika Ramsey MD Primary Care Provider +1- [phone] Reason for Visit * Reason Comments Med Refill Encounter Details Date Type Department Care Team (Late Contact Info) Description 05/18/2023 Refill [facility] CHC MED & PEDS [address] [place] [address] Dyan Fox MD [address] [place] [phone] Chronic midline low back pain without sciatica [...] Description 04/26/2025 10:30 AM EST Office Visit [facility] MEDICINE [address] [place] [address] Jessika Ramsey MD [address] [place] [phone] documented as of this encounter Visit Diagnoses Diagnosis Chronic midline low back pain without sciatica documented in this encounter Care Teams Organization Development Consultant Relationship Specialty Start Date End Date Jessika Ramsey MD [address] [place] [phone] PCP - General Family Medicine 06/14/18 documented as of this encounter
--- OUTSIDE RECORDS SUMMARY | 2025-03-14 11:09 | XMS_ITS | Encounter Summary ---
Author Organization [employer] Address [address] [place] [address] Care Team Providers Care Superintendent Menagerie Name Role Phone Jessika Ramsey MD Primary Care Provider +1- [phone] Reason for Visit * Reason Onset Date Comments Med Refill 04/19/2023 Encounter Details Date Type Department Care Team (Late st Contact Info) Description 04/19/[address] [facility] MEDICINE [address] [place] [phone] Jessika Ramsey MD [address] [place] [phone] Social History Tobacco Use Types Packs/Day Years [...] 10:30 AM EST Office Visit [facility] MED[facility]INE [address] [place] [address] Jessika Ramsey MD [address] [place] [phone] documented as of this encounter Visit Diagnoses Not on filedocumented in this encounter Care Teams Superintendent Menagerie Relationship Specialty Start Date End Date Jessika Ramsey MD [address] [place] [phone] PCP - General Family Medicine 06/14/18 documented as of this encounter
--- OUTSIDE RECORDS SUMMARY | 2025-03-14 11:09 | XMS_ITS | Encounter Summary ---
Author Organization [employer] Address [address] [place] [address] Care Team Providers Care Furnace Caretaker Name Role Phone Jessika Ramsey MD Primary Care Provider +1- [phone] Reason for Visit * Reason Onset Date Comments Med Refill 05/17/2023 Encounter Details Date Type Department Care Team (Late st Contact Info) Description 05/17/2023 Refill [facility] CH[facility] MED & PEDS [address] [place] [address] Dyan Fox MD [address] [place] [address] Chronic midline low back pain without sciatica [...] 04/26/2025 10:30 AM EST Office Visit [facility] MEDICINE [address] [place] [phone] Jessika Ramsey MD [address] [place] [phone] documented as of this encounter Visit Diagnoses Diagnosis Chronic midline low back pain without sciatica documented in this encounter Care Teams Furnace Caretaker Relationship Specialty Start Date End Date Jessika Ramsey MD [address] [place] [phone] PCP - General Family Medicine 06/14/18 documented as of this encounter
--- OUTSIDE RECORDS SUMMARY | 2025-03-14 11:09 | XMS_ITS | Clinical Summary ---
Author Organization [employer] Address [address] [place] [address] 7[address] [place] [address] Care Team Providers Care Plastic Tile Layer Name Role Phone Jessika Ramsey MD Primary Care Provider +1- [phone] Allergies Active Allergy Reactions Criticality Noted Date [...] by mouth Once per day. 30 tablet 11 07/14/19 25 026 Active hydroCHLOROthia zide (HYDRODiuril) 25 MG tabletIndicatio ns:Primary hypertension Take 1 tablet (25 mg) by mouth Once per day. 30 tablet 11 02/02/20 25 026 Active morphine CR (MS Contin) 30 MG 12 hr tabletIndicatio ns:Chronic midline low back pain without sciatica Take 1 tablet (30 mg) by mouth 2 times daily. Do not crush, chew, or split. 60 tablet 02/20/20 25 025 Active morphine CR (MS Contin) 30 MG 12 hr tabletIndicatio ns:Chronic midline low back pain without sciatica Take 1 tablet (30 mg) by mouth 2 times daily. Do not crush, chew, or split. 60 tablet 02/07/20 25 025 Discontinued(R eorder (will not trigger notification to Pharmacy)) Active Problems Problem Noted Date Diagnosed Date Anemia 11/09/2024 Overview (02/01/2025): Lab Results Component Value Date FERRITIN 17 08/07/2024 HGB 11.2 (L) 08/07/2024 -on (red) meatless diet. Encouraged other dietary forms of iron intake. -rechecking labs 02/01/25 Assessment & Plan (02/01/2025 10:35 AM EDT): Lab Results Component Value Date FERRITIN 17 08/07/2024 HGB 11.2 (L) 08/07/2024 -on (red) [...] but this month did not. -referred to FREIGHT REPRESENTATIVE 1/31/25 Assessment & Plan (07/14/2024 11:58 AM EST): Reports has spotting precipitating her menstrual cycle, but this month did not. -referred to FREIGHT REPRESENTATIVE 07/14/24 Tubal ligation evaluation 07/14/2024 Overview (07/14/2024): Interested in tubal ligation. No desire for . -referred to FREIGHT REPRESENTATIVE 07/14/24 Assessment & Plan (07/14/2024 11:44 AM EST): Interested in tubal ligation. No desire for . -referred to FREIGHT REPRESENTATIVE 07/14/24 Wheeze 07/14/2024 Screening mammogram for breast cancer 07/14/2024 Overview (02/01/2025): Ordered mammogram 07/14/24 -has appt 02/2025. Assessment & Plan (02/01/2025 10:35 AM EDT): Ordered mammogram 07/14/24 -has appt 02/2025. Assessment & Plan (07/14/2024 11:53 AM EST): Ordered mammogram 07/14/24 terminal worker (current) use of opiate analgesic 03/16 Other specified health status 03/15/2023 Overview (07/14/2024): -next comprehensive annual evaluation due after 07/14/25 -eye care facilitated by [facility] -dental home encouraged -deven care proxy given and filed 07/14/24 Assessment & Plan (07/14/2024 11:53 AM EST): -next comprehensive annual evaluation due after 07/14/25 -eye care facilitated by [facility] -dental home encouraged -deven care proxy given and filed 07/14/24 Anxiety 12/04/2022 Asthma 12/04/2022 History of tonsillectomy 12/04/2022 Abnormal cervical Papanicolaou smear 11/25/2021 Overview (02/01/2025): PAP 03/31/18 NILM HPV neg, next due 5 years. Pap done 07/14/24 NILM HPV neg, next due 5 years. Assessment & Plan (07/14/2024 11:55 AM EST): PAP 03/31/18 NILM HPV neg, next due [...] mouth Once per day. Referral to Pharmacy CDTM Assessment & Plan (07/14/2024 12:01 PM EST): [...] as pharmacomtherapy, [facility] smoking cessation group, and [facility] pharmacy smoking cessation clinic Discussed USPSTF recommends [...] as pharmacomtherapy, [facility] smoking cessation group, and [facility] pharmacy smoking cessation clinic Discussed USPSTF recommends annual lung cancer screening with low dose CT in people who meet the following criteria: -ages 50 to 80 years. -have a 20 pack-year smoking history. -currently smoke cigarettes or quit within the past 15 years. -LDCT: not applicable. Vitamin D deficiency 11/25/2021 Overview (11/09/2024): Lab Results Component Value Date [id number] 34.9 08/07/2024 -stable, Assessment & Plan (07/14/2024 [...] Encounters Date Type Department Care Team Description 03/08/2025 Telephone [facility] [address] [place] [address] Tyesha Fairbanks RN 02/19/2025 Telephone [facility] [address] [place] [address] Tyesha Fairbanks RN 02/19/2025 Refill [facility] [address] [place] [address] Jessika Ramsey MD Chronic midline low back pain without sciatica 02/14/2025 Travel 02/14/2025 Telephone [facility] [address] [place] [address] Tyesha Fairbanks RN 02/14/2025 Telephone [facility] [address] [place] [address] Jessika Ramsey MD 02/07/2025 Telephone [facility] [address] [place] [address] Jessika Ramsey MD 02/06/2025 Telephone [facility] [address] [place] [address] Jessika Ramsey MD 02/06/2025 Orders Only [facility] [address] [place] [address] Jessika Ramsey MD Chronic midline low back pain without sciatica 02/04/2025 Refill [facility] [address] [place] [address] 112[address] Jessika Ramsey MD Chronic midline low back pain without sciatica 02/02/2025 Telephone [facility] [address] [place] [address] Jessika Ramsey MD 02/01/2025 9:45 AM EDT Office Visit [facility] [address] [place] [address] Jessika Ramsey MD Primary hypertension (Primary Dx); Pain and swelling of right knee; Elevated blood sugar; Anemia, unspecified type; Dietary counseling; Exercise counseling; Screening mammogram for breast cancer; Encounter for immunization 02/01/2025 Travel 01/31/2025 Telephone [facility] [address] [place] [address] Jessika Ramsey MD chartprep 01/21/2025 Refill [facility] [address] [place] [address] Jessika Ramsey MD Chronic midline low back pain without sciatica 01/08/2025 Telephone [facility] [address] [place] [address] Tyesha Fairbanks RN 01/08/2025 Refill [facility] [address] [place] [address] Jessika Ramsey MD Chronic midline low back pain without sciatica 12/27/2024 Refill [facility] [address] [place] [address] Jessika Ramsey MD Chronic midline low back pain without sciatica 12/25/2024 Refill [facility] [address] [place] [address] Jessika Ramsey MD Chronic midline low back pain without sciatica 12/14/2024 10:30 AM EDT Clinical Support [facility] [address] [place] [address] Tyesha Fairbanks RN Chronic midline low back pain without sciatica 12/14/2024 Telephone [facility] [address] [place] [address] Tyesha Fairbanks, NORMA 12/14/2024 Travel 12/12/2024 Travel from Last 3 Months Immunizations Immunization [...] Description 04/26/2025 10:30 AM EST Office Visit [facility] [address] [place] [address] Jessika Ramsey MD [address] [place] [address] Health Maintenance Due Date Last Done Comments HPV Vaccines (1 - 3-dose series) 1999 Mammogram 2024 Hepatitis B Vaccines (2 of 3 - 19+ 3-dose series) 08/11/2024 07/14/2024 COVID-19 Vaccine (2 - 2024- season) 2025 06/27/2021 Influenza Vaccine (#1) 2025 , 04/30/2022, 03/31/2021, Additional history exists Alcohol/Substance Use Screening 07/14/2025 07/14/2024 Depression Screening 07/14/2025 07/14/2024, 07/14/19 25 SDOH Screening 07/14/2025 07/14/2024 Disability Screening 11/02/2025 [...] Laterality Modality Lower Extremities, Knee Right Radiogra phic Imaging 02/01/2025 10:0 6 AM EDT Narrative 02/01/2025 11:05 [place] [address] XRay Report Signed Patient: Nargis Castro MR#: [id number] : 1985 Acct:[id number] Age/Sex: 39 / F ADM Date: 02/01/25 Loc: HO.HHCX Attending Dr: Jessika Ramsey MD Ordering Physician: Jessika Ramsey MD Date of Service: 02/01/25 Procedure(s): XR knee RT 3V Accession Number(s): [id number] cc: Jessika Ramsey MD EXAMINATION: XR KNEE, [...] 02/01/25 1103 DD/ 1006 TD/TT: 02/01/25 1053 Group Teacher: Procedure Note Donotuseinterpreter, Image - 02/01/[address] [address] XRay Report Signed Patient: Sarah Castro#: [id number] : 1985Acct:[id number] Age/Sex: 39 / FADM Date: 02/01/25 Loc: HO.HHCX Attending Dr: Jessika Ramsey MD Ordering Physician: Jessika Ramsey MD Date of Service: 02/01/25 Procedure(s): XR knee RT 3V Accession Number(s): [id number] cc: Jessika Ramsey MD EXAMINATION: XR KNEE, [...] 02/01/25 1103 DD/ 1006 TD/TT: 02/01/25 1053 Group Teacher: Jessika Ramsey MD IMG XR PROCEDURES Final Re sult * (ABNORMAL) POCT BIGG-14 Urine Drug Screen (12/14/2024 10:45 AM EDT) Pathologist [facility] THC Positive(A) Negative Cocaine Screen, Urine Negative [...] 10:45 AM EDT Internal Pass Control Lot# [id number] Exp: 04-13-26 Jessika Ramsey MD POINT OF CARE TEST ENTER/E DIT ORDERABLES Edited Result - Final * Hepatitis C Antibody with Reflex to HCV, RNA, Quantitative, Real-Time PCR (08/07/2024 12:03 PM EST) [facility] Hepatitis C Antibody Nonreactive Nonreactive [facility] Comment:Antibodies to HCV no t detected; does not exclude early acuteHCV infection. Blood Venous blood specimen / Unknown 08/07/2024 12:03 PM EST 08/07/2024 1:37 PM EST Jessika Ramsey MD LAB BLOOD ORDERABLES Final Result [facility] [address] [place] [phone] * HIV-1/2 Antigen and Antibodies, Fourth Generation, with Reflexes (08/07/2024 12:03 PM EST) Pathologist [facility] HIV AB/AG Nonreactive Nonreactive [facility] Comment:HIV-1 p24 Ag and/or HIV-1/HIV-2 Ab not detected.A test result that is nonreactive does not exclude thepossibility of exposure to or infection with HIV-1 and/orHIV-2. Nonreactive results in this assay for individualswith prior exposure to HIV-1 and/or HIV-2 may be due toantigen and antibody levels that are below the limit ofdetection of this assay.The [employer] HIV Ag/Ab Combo assay result andsupplemental assay results should be interpreted inconjunction with the patient's clinical presentation,history and other laboratory results. If the results areinconsistent with clinical evidence, additional testing issuggested to confirm the result. Blood Venous blood specimen / Unknown 08/07/2024 12:03 PM EST 08/07/2024 1:37 PM EST us Jessika Ramsey MD LAB BLOOD ORDERABLES Final Result [facility] [address] [place] [phone] * (ABNORMAL) Lipid Panel, Standard (08/07/2024 12:03 PM EST) Triglycerides 81 <150 mg/dL [facility] Comment:Desirable Triglyceri de: less than 150 mg/dLBorderline High Triglyceride 150-199 mg/dLHigh Triglyceride: 200-499 mg/dLVery High Triglyceride: greater than or equal to 5OO mg/dL Cholesterol 192 <200 mg/dL [facility] Comment:Desirable Cholestero l: less than 200 mg/dLBorderline High Cholesterol: 200-239 mg/dLHigh Cholesterol: greater than 239 mg/dL LDL Cholesterol Calculated 100(H) <100 mg/dL [facility] Comment:Desirable LDL: less than 100 mg/dLNear Optimal/Above Optimal LDL: 110- 129 mg/dLBorderline High LDL: 130-159 mg/dLHigh LDL: 160-189 mg/dLVery High LDL: greater than or equal to 190 mg/dL HDL Cholesterol 76 >40 mg/dL [facility] Comment:Desirable HDL: great er than 40 mg/dL Note: This HDL assay may give artificially low results in patients with liver disease. Blood Venous blood specimen / Unknown 08/07/2024 12:03 PM EST 08/07/2024 1:37 PM EST Jessika Ramsey MD LAB BLOOD ORDERABLES Final Result [facility] [address] [place] [phone] * Pap Smear (07/14/2024 12:07 PM EST) Swab Cervical swab / Unknown 07/14/2024 12:07 PM EST 07/17/2024 8:55 AM EST Narrative [facility] - 07/26/2024 10:51 AM EST ----- ------- Name: Nargis Castro Age/Sex: 39/F : 1985 Unit#: [id number] Attend Dr: Jessika Ramsey MD Re07/14/24 Status: DEP REF Location: HOHHCLNP Disch: ----- ------- SPEC : [id number] RECD: 07/17/24 STATUS: ARMAND FIELDS NUM: [id number] GERARD: 07/14/24-[address] [facility] DR: Jessika Ramsey MD ENTERED: 07/17/24 SP TYPE: Pap Smr OTHR KAUR: ORDERED: Pap Smear Interpretation Satisfactory for evaluation. [...] MD LAB CYTOLOGY ORDERABLES Fi nal Result Performing Organization Address [facility]/ZIP Co de Phone Number [facility] [address] [place] [phone] * HPV High Risk PCR (03/31/2018 12:00 AM EDT) Swab Cervical swab / Unknown Historical Provider LAB MICROBIOLOGY - GENERA L ORDERABLES Final Result IMAGING from Last 3 Months or Most Recently Relevant to Health Maintenance Insurance [facility] C3 Advance Directives Documents on File Type Date Recorded Patient Director Of Solutions Architecture Expl anation Advance Directives and Living Will 07/14/2024 Health Care Proxy 07/14/24 Care Teams Plastic Tile Layer Relationship Specialty Start Date End Date Jessika Ramsey MD [address] [place] [address] PCP - General Family Medicine 06/14/18
--- OUTSIDE RECORDS SUMMARY | 2025-03-14 11:09 | XMS_ITS | Encounter Summary ---
Author Organization [employer] Address [address] [place] [address] Care Team Providers Care Manager Digital Ad Operations Name Role Phone Jessika Ramsey MD Primary Care Provider +1- [phone] Reason for Visit * Reason Comments Med Refill Encounter Details Date Type Department Care Team (Late st Contact Info) Description 05/24/2024 Refill [facility] [address] [place] [address] Jessika Ramsey MD [address] [place] [phone] Depressive disorder Social History Tobacco Use Types [...] Description 04/26/2025 10:30 AM EST Office Visit [facility] [address] [place] [phone] Jessika Ramsey MD [address] [place] [address] documented as of this encounter Visit Diagnoses Diagnosis Depressive disorder Depressive disorder, not elsewhere classified documented in this encounter Care Teams Manager Digital Ad Operations Relationship Specialty Start Date End Date Jessika Ramsey MD [address] [place] [address] PCP - General Family Medicine 06/14/18 documented as of this encounter
--- OUTSIDE RECORDS SUMMARY | 2025-03-14 11:09 | XMS_ITS | Encounter Summary ---
Author Organization [employer] Address [address] [place] [address] Care Team Providers Care Automobile Body Repairer Helper Name Role Phone Jessika Ramsey MD Primary Care Provider +1- [phone] Reason for Visit * Reason Onset Date Comments Appointment Request 06/01/2024 Encounter Details Date Type Department Care Team (Late st Contact Info) Description 06/01/2024 Telephone [facility] MEDICINE [address] [place] [address] Jessika Ramsey MD [address] [place] [address] [phone] Appointment Request Social History Tobacco Use Types [...] Miscellaneous Notes * Telephone Encounter - Jax Castro - 06/01/2024 2:18 PM EST Tc from pt requesting appointment as she missed her appointment for med count documented in this encounter Plan of Treatment Upcoming Encounters Date Type Department Care Team (Late st Contact Info) Description 04/26/2025 10:30 AM EST Office Visit [facility] MED[facility]INE [address] [place] [address] Jessika Ramsey MD [address] [place] [address] documented as of this encounter Visit Diagnoses Not on filedocumented in this encounter Care Teams Automobile Body Repairer Helper Relationship Specialty Start Date End Date Jessika Ramsey MD [address] [place] [address] PCP - General Family Medicine 06/14/18 documented as of this encounter
--- OUTSIDE RECORDS SUMMARY | 2025-03-14 11:09 | XMS_ITS | Encounter Summary ---
Author Organization [employer] Address [address] [place] [address] Care Team Providers Care Poultry Offal Worker Name Role Phone Jessika Ramsey MD Primary Care Provider +1- [phone] Reason for Visit * Reason Comments Med Refill Encounter Details Date Type Department Care Team (Late Contact Info) Description 05/12/2024 Refill [facility] [address] [place] [address] Jessika Ramsey MD [address] [place] [address] Tobacco dependence syndrome Social History Tobacco Use [...] Department Care Team (Late Contact Info) Description 04/26/2025 10:30 AM EST Office Visit [facility] [address] [place] [address] Jessika Ramsey MD [address] [place] [address] documented as of this encounter Visit Diagnoses Diagnosis Tobacco dependence syndrome Tobacco use disorder documented in this encounter Care Teams Poultry Offal Worker Relationship Specialty Start Date End Date Jessika Ramsey MD [address] [place] [address], [place] [address] PCP - General Family Medicine 06/14/18 documented as of this encounter
--- OUTSIDE RECORDS SUMMARY | 2025-03-14 11:09 | XMS_ITS | Encounter Summary ---
Author Organization [employer] Address [address] [place] [address] Care Team Providers Care Professor Of Violin Name Role Phone Jessika Ramsey MD Primary Care Provider +1- [phone] Reason for Visit * Reason Comments Med Refill Encounter Details Date Type Department Care Team (Late st Contact Info) Description 03/09/2024 Refill [facility]S [address] [place], [place] [phone] Gypsy Dumont, ANP [address] [place] [address] Chronic midline low back pain without sciatica [...] Description 04/26/2025 10:30 AM EST Office Visit [facility] [address] [place] [address] Jessika Ramsey MD [address] [place] [address] documented as of this encounter Visit Diagnoses Diagnosis Chronic midline low back pain without sciatica documented in this encounter Care Teams Professor Of Violin Relationship Specialty Start Date End Date Jessika Ramsey MD [address] [place] [address] PCP - General Family Medicine 06/14/18 documented as of this encounter
--- OUTSIDE RECORDS SUMMARY | 2025-03-14 11:09 | XMS_ITS | Encounter Summary ---
Author Organization [employer] Address [address] [place] [address] Care Team Providers Care In Service Educator Name Role Phone Jessika Ramsey MD Primary Care Provider +1- [phone] Reason for Referral * Consultation (Routine) - Closed Specialty Diagnoses / Procedures Referred By Contac t Referred To Contact Pharmacy Diagnoses Tobacco dependence syndrome Jessika Ramsey MD [address] [place] [address] Phone: tel: fax: Referral ID Status Reason Start Date Expiration Date V isits Requested Visits Authorized [id number] Closed Consult and Treat 01/13/2023 01/13/2024 1 1 Encounter Details Date Type Department Care Team (Late st Contact Info) Description 01/13/2023 Orders Only [facility] MED[facility]INE [address] [place], [place] [phone] Jessika Ramsey MD [address] [place], [place] [phone] Tobacco dependence syndrome (Primary Dx) Social History [...] Description 04/26/2025 10:30 AM EST Office Visit [facility] [address] [place] [address] Jessika Ramsey MD [address] [place] [address] Scheduled Referrals Name Type Priority Associated Diagnoses Orde r Schedule Referral to Pharmacy CDTM Outpatient Referral Routine Tobacco dependence syndrome Ordered: 01/13/2023 documented as of this encounter Visit Diagnoses Diagnosis Tobacco dependence syndrome- Primary Tobacco use disorder documented in this encounter Care Teams In Service Educator Relationship Specialty Start Date End Date Jessika Ramsey MD [address] [place] [address] PCP - General Family Medicine 06/14/18 documented as of this encounter
--- OUTSIDE RECORDS SUMMARY | 2025-03-14 11:09 | XMS_ITS | Encounter Summary ---
Author Organization [employer] Address [address] [place] [address] Care Team Providers Care Fabric Normalizer Name Role Phone Jessika Ramsey MD Primary Care Provider +1- [phone] Reason for Visit * Reason Onset Date Comments Med Refill 11/22/2023 Encounter Details Date Type Department Care Team (Late st Contact Info) Description 11/22/2023 Refill [facility] [address] [place] [address] Gypsy Dumont ANP [address] [place] [address] Chronic midline low back pain without sciatica [...] Description 04/26/2025 10:30 AM EST Office Visit [facility] [address] [place] [address] Jessika Ramsey MD [address] [place] [address] documented as of this encounter Visit Diagnoses Diagnosis Chronic midline low back pain without sciatica documented in this encounter Care Teams Fabric Normalizer Relationship Specialty Start Date End Date Jessika Ramsey MD [address] [place] [address] PCP - General Family Medicine 06/14/18 documented as of this encounter
--- OUTSIDE RECORDS SUMMARY | 2025-03-14 11:09 | XMS_ITS | Encounter Summary ---
Author Organization [employer] Address [address] [place] [address] Care Team Providers Care Qc Tech Name Role Phone Jessika Ramsey MD Primary Care Provider +1- [phone] Reason for Visit * Reason Comments Med Refill Encounter Details Date Type Department Care Team (Late st Contact Info) Description 08/09/[address] [facility] [address] [place] [address] Patricia Servin MD [address] [place] [address] Chronic midline low back pain without sciatica [...] Description 04/26/2025 10:30 AM EST Office Visit [facility] [address] [place] [address] Jessika Ramsey MD [address] [place], [place] [phone] documented as of this encounter Visit Diagnoses Diagnosis Chronic midline low back pain without sciatica documented in this encounter Care Teams Qc Tech Relationship Specialty Start Date End Date Jessika Ramsey MD [address] [place] [address] PCP - General Family Medicine 06/14/18 documented as of this encounter
--- OUTSIDE RECORDS SUMMARY | 2025-03-14 11:09 | XMS_ITS | Encounter Summary ---
Author Organization [employer] Address [address] [place] [address] Care Team Providers Care Rouge Miller Name Role Phone Jessika Ramsey MD Primary Care Provider +1- [phone] Reason for Visit * Reason Onset Date Comments Med Refill 06/02/2024 Encounter Details Date Type Department Care Team (Late st Contact Info) Description 06/02/2024 Refill [facility] [address] [place] [address] Jessika Ramsey MD [address] [place] [address] Chronic midline low back pain without sciatica [...] 10:30 AM EST Office Visit [facility] MEDICINE [address] [place] [phone] Jessika Ramsey MD [address] [place] [address] documented as of this encounter Visit Diagnoses Diagnosis Chronic midline low back pain without sciatica documented in this encounter Care Teams Rouge Miller Relationship Specialty Start Date End Date Jessika Ramsey MD [address] [place] [address] PCP - General Family Medicine 06/14/18 documented as of this encounter
--- OUTSIDE RECORDS SUMMARY | 2025-03-14 11:10 | XMS_ITS | Encounter Summary ---
Author Organization [employer] Address [address] [place] [address] Care Team Providers Care Manager Of Network Name Role Phone Jessika Ramsey MD Primary Care Provider +1- [phone] Reason for Visit * Reason Onset Date Comments Appointment Request 08/10/2022 Encounter Details Date Type Department Care Team (Late Contact Info) Description 08/10/2022 Telephone [facility] [address] [place] [address] Jessika Ramsey MD [address] [place] [address] Appointment Request Social History Tobacco Use Types [...] an incident occur at home and couldn't knot picker cloth the phone call. Please contact pt at [phone] documented in this encounter Plan of Treatment Upcoming Encounters Date Type Department Care Team (Late Contact Info) Description 04/26/2025 10:30 AM EST Office Visit [facility] [address] [place] [address] Jessika Ramsey MD [address] [place] [address] documented as of this encounter Visit Diagnoses Not on filedocumented in this encounter Care Teams Manager Of Network Relationship Specialty Start Date End Date Jessika Ramsey MD [address] [place] [phone] PCP - General Family Medicine 06/14/18 documented as of this encounter
--- OUTSIDE RECORDS SUMMARY | 2025-03-14 11:10 | XMS_ITS | Encounter Summary ---
Author Organization [employer] Address [address] [place] [address] Care Team Providers Care Manager Digital Ad Operations Name Role Phone Jessika Ramsey MD Primary Care Provider +1- [phone] Reason for Visit * Reason Comments Med Refill Encounter Details Date Type Department Care Team (Late st Contact Info) Description 06/15/2023 Refill [facility]EDS [address] [place] [address] Jessika Ramsey MD [address] [place] [address] [phone] Chronic midline low back pain without sciatica [...] 10:30 AM EST Office Visit [facility]INE [address] [place] [phone] Jessika Ramsey MD [address] [place] [address] [phone] documented as of this encounter Visit Diagnoses Diagnosis Chronic midline low back pain without sciatica documented in this encounter Care Teams Manager Digital Ad Operations Relationship Specialty Start Date End Date Jessika Ramsey MD [address] [place] [address] PCP - General Family Medicine 06/14/18 documented as of this encounter
--- OUTSIDE RECORDS SUMMARY | 2025-03-14 11:10 | XMS_ITS | Encounter Summary ---
Author Organization [employer] Address [address] [place] [address] [address] [place] [address] Care Team Providers Care Hog Driver Name Role Phone Jessika Ramsey MD Primary Care Provider +1- [phone] Reason for Visit * Reason Comments Med Refill Encounter Details Date Type Department Care Team ([facility] st Contact Info) Description 09/18/2024 Refill [facility] [address] [place] [address] Jessika Ramsey MD [address] [place] [address] Chronic midline low back pain without sciatica [...] 10:30 AM EST Office Visit [facility] [address] [place] [phone] Jessika Ramsey MD [address] [place] [address] documented as of this encounter Visit Diagnoses Diagnosis Chronic midline low back pain without sciatica documented in this encounter Additional Health Concerns Assessment Noted Time PHQ-9 Depression Total Score: 6 07/14/19 25 11:04 AM EST documented as of this encounter Care Teams Hog Driver Relationship Specialty Start Date End Date Jessika Ramsey MD [address] [place] [id number] PCP - General Family Medicine 06/14/18 documented as of this encounter
--- OUTSIDE RECORDS SUMMARY | 2025-03-14 11:10 | XMS_ITS | Encounter Summary ---
Author Organization [employer] Address [address] [place] [address] [address], [place] [address] Care Team Providers Care Chain Person Name Role Phone Jessika Ramsey MD Primary Care Provider +1- [phone] Encounter Details Date Type Department Care Team (Late st Contact Info) Description 07/02/2022 Orders Only [facility] & PEDS [address] [place] [address] Peace Faustin LPN Social History Tobacco Use [...] Description 04/26/2025 10:30 AM EST Office Visit [facility] [address] [place] [address] Jessika Ramsey MD [address] [place] [address] documented as of this encounter Visit Diagnoses Not on filedocumented in this encounter Care Teams Chain Person Relationship Specialty Start Date End Date Jessika Ramsey MD [address] [place] [address] PCP - General Family Medicine 06/14/18 documented as of this encounter
--- OUTSIDE RECORDS SUMMARY | 2025-03-14 11:10 | XMS_ITS | Encounter Summary ---
Author Organization [employer] Address [address] [place] [address] Care Team Providers Care Hookman Name Role Phone Jessika Ramsey MD Primary Care Provider +1- [phone] Encounter Details Date Type Department Care Team (Late st Contact Info) Description 06/29/2022 Abstract [facility] [address] [place] [address] [phone] Jessika Ramsey MD [address] [place] [address] [phone] Social History Tobacco Use Types Packs/Day Years [...] [facility] [address] [place] [address] [phone] Jessika Ramsey MD [address] [place] [address] [phone] documented as of this encounter Procedures Procedure Name Priority Date/Time Associated Diagnosis Comments HPV HIGH RISK PCR Routine 03/31/2018 12:00 AM EDT PAP SMEAR Routine 03/31/2018 12:00 AM EDT documented in this encounter Results * HPV High Risk PCR (03/31/2018 12:00 AM EDT) Swab Cervical swab / Unknown Historical Provider LAB MICROBIOLOGY - GENERA L ORDERABLES Final Result IMAGING * Pap Smear (03/31/2018 12:00 AM EDT) Swab Historical Provider LAB CYTOLOGY ORDERABLES F inal Result Performing Organization Address City/State/[facility] Co de Phone Number IMAGING documented in this encounter Visit Diagnoses Not on filedocumented in this encounter Care Teams Hookman Relationship Specialty Start Date End Date Roxy, MD Jessika [address] [place] [phone] PCP - General Family Medicine 06/14/18 documented as of this encounter
== END 2025-03-14 10:36 | disposition home or self-care (01) ==
LOC: HO.HOS 09:59
PROVIDERS: PCP Family Medicine; Visit Provider Orthopaedic Surgery
DX: S83.241A Other tear of medial meniscus, current injury, right knee, initial encounter (principal)
CPT/HCPCS: 99203

== ENCOUNTER → 2025-03-14 09:58 | Outpatient (BNVA) | payer MEDICAID, SELFPAY | PROVIDERS: PCP Family Medicine; Visit Provider Orthopaedic Surgery | DX: S83.241A Other tear of medial meniscus, current injury, right knee, initial encounter (principal); X50.1XXA Overexertion from prolonged static or awkward postures, initial encounter; Y93.89 Activity, other specified; Y92.003 Bedroom of unspecified non-institutional (private) residence as the place of occurrence of the external cause; Y99.9 Unspecified external cause status | CPT/HCPCS: 99202 ==